=== PATIENT | female | born 1985 | race American Indian/Alaskan Native ===

== ENCOUNTER 2020-06-09 06:09 | Emergency (ER) | payer OTHER, SELFPAY ==
[2020-06-09 06:22] VITALS: BP 132/80; PULSE 71; RESP 16; TEMP 36.9; O2SAT 99; BMI 34.0
--- NOTE | 2020-06-09 06:27 | ECG_ITS ---
Test Reason : CHEST PAIN Blood Pressure : / mmHG Vent. Rate : 065 BPM Atrial Rate : 065 BPM P-R Int : 176 ms QRS Dur : 090 ms QT Int : 416 ms P-R-T Axes : 035 067 033 degrees QTc Int : 432 ms Normal sinus rhythm Normal ECG When compared with ECG of 23-DEC-2019 11:03, No significant change was found Referred By: Sylvia Hackett Electronically Signed By:FLORY PRIETO
--- NOTE | 2020-06-09 06:28 | XR_ITS ---
EXAMINATION: XR CHEST CLINICAL INFORMATION: Chest pain COMPARISON: 11/12/2013 TECHNIQUE: Frontal view of the chest was obtained. FINDINGS: Cardiac leads overlie the chest. The lungs are well expanded. There is no focal consolidation, edema, or effusion. No pneumothorax. The cardiomediastinal silhouette is within normal limits. No acute osseous abnormality. XR/XR chest 1V IMPRESSION: Clear lungs.
[2020-06-09 06:45] LABS: MANUAL DIFF FLAG NO
[2020-06-09 06:50] LABS: Basophils Percent Auto 0.1 % (0-2); Eosinophils Absolute Auto 0.1 X10*3/uL (0.0-0.4); Eosinophils Percent Auto 0.7 % (0-4); Hematocrit 36.5 % (37-47); Hemoglobin 11.5 g/dl (12.0-16.0); Imm Gran Abs Auto 0.02 X10*3/uL (0.00-0.03); Imm Gran Pct Auto 0.2 % (0.0-0.4); Lymphocytes Absolute Auto 2.8 X10*3/uL (1.2-4.9); Lymphocytes Percent Auto 32.9 % (20-40); Mean Corpuscular HGB Conc 31.5 g/dl (31.0-35.0); Mean Corpuscular Hemoglobin 28.1 pg (27.0-33.0); Mean Corpuscular Volume 89.2 fL (80-98); Mean Platelet Volume 9.3 fL (9.4-12.3); Monocytes Absolute Auto 0.6 X10*3/uL (0.1-1.2); Monocytes Percent Auto 7.5 % (2-11); Neutrophils Percent Auto 58.6 % (45-73); Platelet Count 317 X10*3/uL (160-400); Red Blood Count 4.09 X10*6/uL (4.20-5.50); Red Cell Distribution Width 14.6 % (11.0-16.0); White Blood Count 8.6 X10*3/uL (4.8-10.8)
--- NOTE | 2020-06-09 07:05 | ED_ITS ---
HPI - Chest Pain General Chief Complaint: Chest Pain Stated Complaint: CHEST PAIN Time Seen by Provider: 06/09/20 06:26 History of Present Illness HPI narrative: Patient is a 35-year-old female no history of diabetes, hypertension, mi, family history of MD. Not a smoker. Presents today with having chest pain that is mid chest. Patient claimed is constant to 20:00. Not associated with shortness of breath. Made worse with lying down. Improved with sitting up. Patient claims that she has a history of anxiety. She tried to take the hydralazine last night and then help. Presents to the emergency department this morning. No leg swelling. No history of control pills. No history of blood clots in the family. No history of cancer. No coughing or congestion or upper respiratory symptoms. No travel history. Patient denies any coughing congestion upper respiratory symptoms. No stress test done Related Data Previous Rx's Medication Instructions Recorded omeprazole magnesium [Prilosec OTC] 20 mg PO DAILY #14 tab 06/09/20 Allergies Allergy/AdvReac Type Severity Reaction Status Date / Time oxycodone [OXYCODONE] Allergy Mild VOMITING Unverified 02/25/20 15:21 acetaminophen [From PERCOCET] Allergy Unknown UNKNOWN Unverified 02/25/20 15:21 Vicodin Allergy Unknown stomach Uncoded 01/14/20 00:00 upset Review of Systems Review of Systems: Constitutional: No Weight loss, No Fever, No Chills, No Night Sweats, No Fatigue, No Malaise ENT/Mouth: No Hearing loss, No Ear Pain, No Nasal Congestion, No Sinus Pain, No Hoarseness, No sore throat, No Rhinorrhea, No Swallowing Difficulty Eyes: No Eye Pain, No Swelling, No Redness, No Foreign Body, No Discharge, No Vision Changes Cardiovascular: Positive Chest Pain, No SOB, No Dyspnea on Exertion, No Orthopnea, No Edema, No Palpitations Respiratory: No Cough, No Sputum, No Wheezing, No Smoke Exposure, No Dyspnea Gastrointestinal: No Nausea, No Vomiting, No Diarrhea, No Constipation, No abdominal Pain, No Hematochezia, No Melena Genitourinary: no irregular bleeding, No Dysuria, No Urinary Frequency, No Hematuria, No Urinary Incontinence, No Urgency, No Flank Pain, No Urinary Flow Changes, No Hesitancy Musculoskeletal: No joint pain, No Myalgias, No Joint Swelling Skin: No Skin Lesions, No rash Neuro: No Weakness, No Numbness, No Paresthesias, No Loss of Consciousness, No Dizziness, No Headache Psych: No Anxiety/Panic, No Depression, No SI/HI/AH/VH, No Social Issues, Heme/Lymph: No Bruising, No Bleeding,No Lymphadenopathy Endocrine: No Polyuria, No Polydipsia, No Temperature Intolerance Yes all other systems are reviewed and are negative [facility] Past Medical History Medical History Anemia Miscarriage Surgical History History of delivery Social History Social History Alcohol intake: never Smoking Status: Never smoker Use of substances other than those prescribed or required for medical reasons: No Advance Directives: No Physical Exam Vital Signs: Vital Signs: Last Vital Signs Temp 98.5 F 06/09/20 06:22 Pulse 58 06/09/20 07:52 Resp 16 06/09/20 07:52 BP 128/67 06/09/20 07:52 Pulse Ox 98 06/09/20 07:52 Body Mass Index 34.0 Appearance: Alert. Oriented X3. No acute distress. Eyes: Pupils equal, round and reactive to light. ENT: Pharynx normal. Neck: Normal inspection. Neck supple. No lymph nodes noted. No crepitus CVS: Normal heart rate and rhythm. Pulses normal. Normal S1 and S2 Respiratory: No respiratory distress. Breath sounds normal. No Wheezing. No rales Abdomen: Soft and nontender. No rigidity. No distention. good BS x4 Skin: Skin warm and dry. Normal skin color. Normal skin turgor. Extremities: No lower extremity edema. Neurovascular intact to all extremities. No Lacerations. No Rash Neuro: Oriented X 3. No motor deficit. No sensory deficit. Moving all extermities. No slurred speech MDM - Chest Pain MDM Narrative Medical decision making narrative: Patient's chest pain atypical for ACS. Patient had no risk factors normal EKG normal troponin. Heart score is less than 3. Pain is greater than 6 hours troponin is negative. Chest x-ray negative for pneumonia pneumothorax. Pain is more consistent with having reflux. Will discharge patient home. Currently in stable condition. Differential Diagnosis Differential diagnosis: Likely fracture of rib, pneumothorax, stable angina, unstable angina pectoris, atypical chest pain, st elevation myocardial infarction and costochondritis Medical Records Data Attestation: I reviewed the patient's medical records. Lab Data Attestation: I reviewed the patient's lab results. Result diagrams: 06/09/20 06:41 06/09/20 06:41 Labs: Lab Results 06/09/20 06/09/20 06/09/20 Range/Units 06:41 06:41 06:41 WBC 8.6 (4.8-10.8) X10*3/uL RBC 4.09 L (4.20-5.50) X10*6/uL Hgb 11.5 L (12.0-16.0) g/dl Hct 36.5 L (37-47) % MCV 89.2 (80-98) fL MCH 28.1 (27.0-33.0) pg MCHC 31.5 (31.0-35.0) g/dl RDW 14.6 (11.0-16.0) % Plt Count 317 (160-400) X10*3/uL MPV 9.3 L (9.4-12.3) fL Immature Gran % (Auto) 0.2 (0.0-0.4) % Neut % (Auto) 58.6 (45-73) % Lymph % (Auto) 32.9 (20-40) % [place] % (Auto) 7.5 (2-11) % Eos % (Auto) 0.7 (0-4) % Baso % (Auto) 0.1 (0-2) % Lymph # (Auto) 2.8 (1.2-4.9) X10*3/uL [place] # (Auto) 0.6 (0.1-1.2) X10*3/uL Eos # (Auto) 0.1 (0.0-0.4) X10*3/uL Baso # (Auto) 0.0 (0.0-0.2) X10*3/uL Abs Immat Gran (auto) 0.02 (0.00-0.03) X10*3/uL Absolute Neuts (auto) 5.0 (2.0-8.3) X10*3/uL Absolute Nucleated RBC 0.000 (0.0-0.012) X10*3/uL Nucleated RBC % (auto) 0.0 (0.0-0.2) /100WBC Sodium 136 (135-145) mmol/L Potassium 4.3 (3.3-5.1) mmol/l Chloride 106 (96-108) mmol/L Carbon Dioxide 24 (22-29) mmol/L Anion Gap 10 L (12-20) BUN 8 L (9-16) mg/dL Creatinine 0.76 (0.5-1.4) mg/dL Estim Creat Clear Calc 98.1 Estimated GFR > 60 Random Glucose 102 (60-115) mg/dL Calcium 9.1 (8.4-10.2) mg/dL Total Bilirubin 0.3 (0.0-1.0) mg/dL AST 18 (5-31) U/L ALT 27 (0-31) U/L Alkaline Phosphatase 82 (39-117) U/L Troponin I High Sens < 3.5 (<3.5-17.0) ng/L Total Protein 7.2 (6.5-8.0) g/dL Albumin 4.6 (3.5-5.0) g/dL Lipase 27 (8-78) U/L Urine Color Urine Appearance Urine pH (5.0-8.0) Ur Specific [address] (1.005-1.025) Urine Protein (NEG-TRACE) MG/DL Urine Glucose (UA) (NEG) MG/DL Urine Ketones (NEG) MG/DL Urine Blood (NEG) Urine Nitrite (NEG) Ur Leukocyte Esterase (NEG) Urine Test (NEGATIVE) 06/09/20 Range/Units 07:46 WBC (4.8-10.8) X10*3/uL RBC (4.20-5.50) X10*6/uL Hgb (12.0-16.0) g/dl Hct (37-47) % MCV (80-98) fL MCH (27.0-33.0) pg MCHC (31.0-35.0) g/dl RDW (11.0-16.0) % Plt Count (160-400) X10*3/uL MPV (9.4-12.3) fL Immature Gran % (Auto) (0.0-0.4) % Neut % (Auto) (45-73) % Lymph % (Auto) (20-40) % [place] % (Auto) (2-11) % Eos % (Auto) (0-4) % Baso % (Auto) (0-2) % Lymph # (Auto) (1.2-4.9) X10*3/uL [place] # (Auto) (0.1-1.2) X10*3/uL Eos # (Auto) (0.0-0.4) X10*3/uL Baso # (Auto) (0.0-0.2) X10*3/uL Abs Immat Gran (auto) (0.00-0.03) X10*3/uL Absolute Neuts (auto) (2.0-8.3) X10*3/uL Absolute Nucleated RBC (0.0-0.012) X10*3/uL Nucleated RBC % (auto) (0.0-0.2) /100WBC Sodium (135-145) mmol/L Potassium (3.3-5.1) mmol/l Chloride (96-108) mmol/L Carbon Dioxide (22-29) mmol/L Anion Gap (12-20) BUN (9-16) mg/dL Creatinine (0.5-1.4) mg/dL Estim Creat Clear Calc Estimated GFR Random Glucose (60-115) mg/dL Calcium (8.4-10.2) mg/dL Total Bilirubin (0.0-1.0) mg/dL AST (5-31) U/L ALT (0-31) U/L Alkaline Phosphatase (39-117) U/L Troponin I High Sens (<3.5-17.0) ng/L Total Protein (6.5-8.0) g/dL Albumin (3.5-5.0) g/dL Lipase (8-78) U/L Urine Color YELLOW Urine Appearance CLEAR Urine pH 7.0 (5.0-8.0) Ur Specific [address] 1.010 (1.005-1.025) Urine Protein NEG (NEG-TRACE) MG/DL Urine Glucose (UA) NEG (NEG) MG/DL Urine Ketones NEG (NEG) MG/DL Urine Blood NEG (NEG) Urine Nitrite NEG (NEG) Ur Leukocyte Esterase NEG (NEG) Urine Test NEGATIVE (NEGATIVE) ECG Data ECG #1: Interpretation: Sinus heart rate was 70 CT QRS QT within normal limits is no acute ST segment elevation noted Discharge Plan Discharge Clinical Impression: Chest pain Patient Disposition: Home, Self-Care Instructions: Chest Pain (ED) Prescriptions: New omeprazole magnesium [Prilosec OTC] 20 mg tablet,delayed release (DR/EC) 20 mg PO DAILY Qty: 14 RF: 0 Referrals: Mague Cruz MD [Primary Care Provider] - 2 days
--- NOTE | 2020-06-09 07:17 | PC.NURSE ---
report taken from mara yanez pt sitting up in [facility]. provider at bedside for primary eval. awaiting further orders.
[2020-06-09 07:18] LABS: Alanine Aminotransferase 27 U/L (0-31); Albumin Level 4.6 g/dL (3.5-5.0); Alkaline Phosphatase 82 U/L (39-117); Anion Gap 10 (12-20); Aspartate Amino Transferase 18 U/L (5-31); Bilirubin Total 0.3 mg/dL (0.0-1.0); Blood Urea Nitrogen 8 mg/dL (9-16); Calcium 9.1 mg/dL (8.4-10.2); Carbon Dioxide 24 mmol/L (22-29); Chloride 106 mmol/L (96-108); Creatinine Clr Calc Pharmacy 98.1; Estimated Glomerular Filt Rate > 60; Glucose Random 102 mg/dL (60-115); Lipase 27 U/L (8-78); Potassium 4.3 mmol/l (3.3-5.1); Sodium 136 mmol/L (135-145); Total Protein 7.2 g/dL (6.5-8.0)
[2020-06-09 07:21] LABS: Troponin-I High Sensitivity < 3.5 ng/L (<3.5-17.0)
[2020-06-09] MEDS: Magnesium Hydrox/Alum Hydrox 30 ML ORAL.SUSP PO (07:34)
[2020-06-09 07:52] VITALS: BP 128/67; PULSE 58; RESP 16; O2SAT 98
--- NOTE | 2020-06-09 07:53 | PC.NURSE ---
medicated per emar, ambulated to and from bathroom for ua spec w steady gait.
[2020-06-09 07:59] LABS: Glucose Urine UA NEG (NEG); Leukocyte Esterase Urine NEG (NEG); Nitrite Urine NEG (NEG); Urine Blood NEG (NEG); Urine Ketones NEG (NEG); Urine Protein NEG (NEG-TRACE)
[2020-06-09 08:00] LABS: Appearance Urine CLEAR; Color Urine YELLOW; UPreg QC Valid YES; Urine Pregnancy NEGATIVE (NEGATIVE)
== END 2020-06-09 08:32 | disposition home or self-care (01) ==
PROVIDERS: Student in an Organized Health Care Education/Training Program; Emergency Provider Emergency Medicine Emergency Medical Services; PCP Internal Medicine
DX: R07.9 Chest pain, unspecified (principal); Z79.899 Other long term (current) drug therapy
CPT/HCPCS: 36415; 71045; 80053; 81003; 81025; 83690; 84484; 85025; 93005; 99283; 99284

== ENCOUNTER 2020-06-13 11:51 | Outpatient (REF) | payer OTHER, SELFPAY ==
[2020-06-13 13:12] LABS: Basophils Percent Auto 0.2 % (0-2); Eosinophils Absolute Auto 0.1 X10*3/uL (0.0-0.4); Eosinophils Percent Auto 1.1 % (0-4); Hematocrit 34.5 % (37-47); Hemoglobin 10.8 g/dl (12.0-16.0); Imm Gran Abs Auto 0.02 X10*3/uL (0.00-0.03); Imm Gran Pct Auto 0.2 % (0.0-0.4); Lymphocytes Absolute Auto 2.7 X10*3/uL (1.2-4.9); MANUAL DIFF FLAG NO; Mean Corpuscular HGB Conc 31.3 g/dl (31.0-35.0); Mean Corpuscular Hemoglobin 27.9 pg (27.0-33.0); Mean Corpuscular Volume 89.1 fL (80-98); Mean Platelet Volume 9.6 fL (9.4-12.3); Monocytes Absolute Auto 0.6 X10*3/uL (0.1-1.2); Monocytes Percent Auto 7.2 % (2-11); Neutrophils Absolute Auto 5.1 X10*3/uL (2.0-8.3); Neutrophils Percent Auto 59.3 % (45-73); Platelet Count 320 X10*3/uL (160-400); Red Blood Count 3.87 X10*6/uL (4.20-5.50); Red Cell Distribution Width 14.5 % (11.0-16.0); White Blood Count 8.5 X10*3/uL (4.8-10.8)
[2020-06-13 13:59] LABS: TSH reflex Free T4 0.15 mIU/mL (0.32-4.0)
[2020-06-13 14:04] LABS: Alanine Aminotransferase 23 U/L (0-31); Albumin Level 4.3 g/dL (3.5-5.0); Alkaline Phosphatase 71 U/L (39-117); Anion Gap 15 (12-20); Aspartate Amino Transferase 17 U/L (5-31); Bilirubin Total 0.2 mg/dL (0.0-1.0); Blood Urea Nitrogen 16 mg/dL (9-16); Calcium 8.6 mg/dL (8.4-10.2); Carbon Dioxide 23 mmol/L (22-29); Chloride 107 mmol/L (96-108); Estimated Glomerular Filt Rate > 60; Glucose Fasting 90 mg/dL (60-99); Potassium 4.5 mmol/l (3.3-5.1); Sodium 140 mmol/L (135-145); Total Protein 7.1 g/dL (6.5-8.0)
[2020-06-13 15:01] LABS: Free T4 (Free Thyroxine) 0.82 ng/dL (0.71-1.85)
== END 2020-06-13 11:52 | disposition home or self-care (01) ==
LOC: HO.LAB 11:51
PROVIDERS: Absent Provider Obstetrics & Gynecology; PCP Internal Medicine; Visit Provider Internal Medicine
DX: E07.9 Disorder of thyroid, unspecified (principal); R55 Syncope and collapse
CPT/HCPCS: 36415; 80053; 84439; 84443; 85025

== ENCOUNTER → 2020-09-08 08:39 | Outpatient (BNVA) | payer OTHER, SELFPAY | PROVIDERS: PCP Internal Medicine; Visit Provider Internal Medicine Endocrinology, Diabetes & Metabolism | DX: E05.90 Thyrotoxicosis, unspecified without thyrotoxic crisis or storm (principal) | CPT/HCPCS: 99202 ==

== ENCOUNTER 2020-09-08 09:29 | Outpatient (REF) | payer OTHER, SELFPAY ==
[2020-09-08 11:09] LABS: Free T4 (Free Thyroxine) 0.66 ng/dL (0.71-1.85); HCG Quantitative < 2 mIU/mL; Thyroid Stimulating Hormone 0.16 uIU/mL (0.32-4.0)
[2020-09-09 02:42] LABS: Triiodothyronine T3 Total 65 ng/dL (76-181)
[2020-09-09 07:02] LABS: Thyroglobulin Antibodies <1 IU/mL (< or = 1); Thyroid Peroxidase Antibodies 1 IU/mL (<9)
[2020-09-12 08:46] LABS: Thyrotropin Receptor Antibody 2.32 IU/L (<=2.00)
[2020-09-12 14:46] LABS: IGF-1 (Somatomedin C) 87 ng/mL (53-331)
[2020-09-14 15:52] LABS: Thyroid Stimulating Immunoglob <89 % baseline (<140)
== END 2020-09-08 09:30 | disposition home or self-care (01) ==
LOC: HO.10HDL 09:29
PROVIDERS: Visit Provider Internal Medicine Endocrinology, Diabetes & Metabolism
DX: E05.90 Thyrotoxicosis, unspecified without thyrotoxic crisis or storm (principal)
CPT/HCPCS: 36415; 83520; 84305; 84439; 84443; 84445; 84480; 84702; 86376; 86800

== ENCOUNTER 2020-09-20 09:38 | Outpatient (REF) | payer OTHER, SELFPAY ==
--- NOTE | ~2020-09-20 | US_ITS ---
EXAMINATION: US THYROID CLINICAL INFORMATION: Thyrotoxicosis, unspecified without thyrotoxic crisis or storm. COMPARISON: Thyroid ultrasound 12/27/2014. TECHNIQUE: Linear transducer ledezma-scale and color Doppler examination with attention to the region of the thyroid. FINDINGS: SIZE: Measurements of the thyroid lobes and nodules are given in sagittal, anteroposterior and transverse dimensions respectively. Right Thyroid Lobe: 6.0 x 1.6 x 1.9 cm, volume 9.8 mL. Previously 5.5 x 1.6 x 1.4 cm, volume 6.8 mL. Parenchyma: The gland echotexture is homogeneous. Thyroid vascularity is normal. Left Thyroid Lobe: 6.2 x 1.4 x 1.7 cm, volume 7.8 mL. Previously 5.6 x 1.7 x 1.8 cm, volume 8.9 mL. Parenchyma: The gland echotexture is homogeneous. Thyroid vascularity is normal. Isthmus: 0.5 cm in maximum AP dimension. Previously 0.4 cm. Estimated total number of nodules greater than or equal to 1 cm: 0. Trauma Registrar nodules are described as follows: 1. Location: Left mid pole. Size: 0.5 x 0.3 x 0.5 cm, volume 0.04 mL. Previously: 0.4 x 0.3 x 0.4 cm, volume 0.03 mL. Nodule characteristics: Composition: Spongiform (0). ACR TI-RADS total points: 0 ACR TI-RADS category: 1 Significant change in size (>/= 20% in 2 dimensions and minimal increase of 2 mm or 50% or greater increase in volume): Yes Change in features: No Change in ACR TI-RADS risk category: Shortness 2. Location: Isthmus. Size: 0.4 x 0.2 x 0.3 cm, volume 0.01 mL. Previously: Not documented. Nodule characteristics: Composition: Solid (2). Echogenicity: Hyperechoic (1). Shape: Not taller than wide (0). Margins: Ill-defined (0). Echogenic Foci: None (0). ACR TI-RADS total points: 3 ACR TI-RADS category: 3 NODES: No lymphadenopathy is seen in the tissue surrounding the thyroid gland. US/US thyroid IMPRESSION: Slightly enlarged right lobe. Small spongiform left nodule slightly increased in size from 2015. Newly appreciated small isthmus nodule. ACR TI-RADS RECOMMENDATION REFERENCE: Ultrasound-guided fine-needle aspiration, followup ultrasound, no further follow up. * TR1 (0 point) and TR 2 (2 points): No FNA or follow up * TR3 (3 points): FNA if more than or equal to 2.5 cm in maximum dimension, followup ultrasound in 1, 3 and 5 years if 1.5 to 2.4 cm in maximum dimension. * TR4 (4-6 points): FNA if more than or equal to 1.5 cm in maximum dimension, followup ultrasound in 1, 2, 3 and 5 years if 1 to 1.4 cm in maximum dimension. * TR5 (more than or equal to 7 points): FNA if more than or equal to 1 cm in maximum dimension, followup ultrasound every year for 5 years if 0.5 to 0.9 cm in maximum dimension. * TR3, TR4 or TR5 nodules that are below the size threshold for follow up receive no follow up.
== END 2020-09-20 09:39 | disposition home or self-care (01) ==
LOC: HO.US 09:38
PROVIDERS: Visit Provider Internal Medicine Endocrinology, Diabetes & Metabolism
DX: E05.90 Thyrotoxicosis, unspecified without thyrotoxic crisis or storm (principal)
CPT/HCPCS: 76536

== ENCOUNTER 2020-11-02 10:31 | Emergency (ER) | payer OTHER, SELFPAY ==
--- NOTE | 2020-11-02 | ECG_ITS ---
Test Reason : MED CLEARANCE Blood Pressure : / mmHG Vent. Rate : 082 BPM Atrial Rate : 082 BPM P-R Int : 152 ms QRS Dur : 088 ms QT Int : 414 ms P-R-T Axes : 061 072 054 degrees QTc Int : 483 ms Normal sinus rhythm Prolonged QT Abnormal ECG When compared with ECG of 09-JUN-2020 06:15, QT has lengthened Referred By: Generic ED Physician Electronically Signed By:FLORY PRIETO
[2020-11-02 10:39] VITALS: BP 148/101; PULSE 99; RESP 18; TEMP 36.8; O2SAT 98; BMI 37.4
--- NOTE | 2020-11-02 11:02 | ED_ITS ---
HPI - Psych General Chief Complaint: Psychiatric Symptoms Stated Complaint: CRISIS Time Seen by Provider: 11/02/20 11:02 History of Present Illness HPI Narrative: Patient with medical history of PTSD/anxiety comes today complaining of feeling like there is blood in her mouth, and that some people may be trying to hurt her she denies any suicidal thoughts she has no thoughts of self-harm she denies hearing voices and she denies any desire to harm any other people, she denies substance abuse She feels shaky, she gets some chest pain when she feels anxiety but it is not related to exertion is no shortness of breath no sweating no nausea Patient does say she is Related Data Home Medications Medication Instructions Recorded Confirmed escitalopram oxalate 20 mg tablet 20 mg PO DAILY 07/04/20 09/08/20 hydroxyzine HCl 50 mg tablet 50 mg PO TID 07/04/20 09/08/20 quetiapine 25 mg tablet 25 mg PO BEDTIME 07/04/20 09/08/20 trazodone 50 mg tablet 50 mg PO BEDTIME 07/04/20 09/08/20 Previous Rx's Medication Instructions Recorded omeprazole magnesium [Prilosec OTC] 20 mg PO DAILY #14 tab 06/09/20 cyanocobalamin (vitamin B-12) 1,000 mcg PO DAILY #90 tab 08/22/20 [Vitamin B-12] ferrous sulfate 325 mg (65 mg 325 mg PO DAILY 90 Days #90 tab 10/12/20 iron) tablet,delayed release Allergies Allergy/AdvReac Type Severity Reaction Status Date / Time oxycodone [OXYCODONE] Allergy Mild VOMITING Verified 09/08/20 08:48 hydrocodone [From Vicodin] Allergy Unknown upset Verified 09/08/20 08:48 stomach amoxicillin Allergy Rash Verified 09/08/20 08:48 Review of Systems Review of Systems: Positive for anxiety and feeling like some people might want to harm her She is negative no fever no chills no dizziness no weakness no shortness of breath no abdominal pain no nausea or vomiting and no sore throat no headache no leg swelling no rash Yes all other systems are reviewed and are negative PMFSH Past Medical History PMF Narrative: Patient does have a psychiatric history Source: nursing notes reviewed Medical History (Updated 09/28/20 @ 09:04 by Esme Meade MD) Abnormal TSH Anemia Depression with anxiety GERD (gastroesophageal reflux disease) Miscarriage Normocytic anemia Subclinical hyperthyroidism Syncope and collapse Surgical History (Updated 08/22/20 @ 13:29 by Esme Meade MD) H/O LEEP History of delivery Family History Family History (Updated 08/22/20 @ 09:46 by Jazmine Villegas) Father No problems noted. Mother No problems noted. Maternal Aunt Breast cancer Diabetes Heart attack Maternal Grandmother Hypertension Diabetes Social History Social History (Updated 09/28/20 @ 08:56 by Jazmine Villegas) Alcohol intake: current Alcohol intake frequency: holidays/special occasions only Cigarettes Per Day: 9 Substance Use Type: Marijuana Advance Directives: No Advance Directives Information Provided: No Patient : No Physical Exam Vital Signs: Vital Signs: Last Vital Signs Temp 98.3 F 11/02/20 10:39 Pulse 99 11/02/20 10:39 Resp 18 11/02/20 10:39 BP 148/101 H 11/02/20 10:39 Pulse Ox 98 11/02/20 10:39 Body Mass Index 37.4 General appearance is no acute distress, come and cooperative The head is normocephalic atraumatic Neck is supple Pharynx is clear Neck is supple Chest is clear to auscultation bilateral with full symmetric equal breath sounds The heart no murmur auscultated Abdomen soft nontender Extremities full range of motion x4, there is no pedal edema, there is no calf tenderness or swelling Skin no rash Neuro no focal deficit Course Course Course Narrative: Patient believes she is , but today's test is negative Chemistry and CBC did not reveal any acute abnormality Urine toxicology showed positive for phencyclidine, cocaine and marijuana Urinalysis was negative as was urine test EKG was a normal sinus rhythm with a rate of 82, WA interval was 152, QRS durati on was 88 QT corrected was 483, mild prolongation of QT No acute ST elevations or ischemic changes Case was signed out to physician assistant manager/embalmer Bruce with N evaluation pending MDM - Psych Lab Data Result diagrams: 11/02/20 12:02 11/02/20 12:02 Labs: Lab Results 11/02/20 11/02/20 11/02/20 Range/Units 11:12 11:12 11:12 WBC (4.8-10.8) X10*3/uL RBC (4.20-5.50) X10*6/uL Hgb (12.0-16.0) g/dl Hct (37-47) % MCV (80-98) fL MCH (27.0-33.0) pg MCHC (31.0-35.0) g/dl RDW (11.0-16.0) % Plt Count (160-400) X10*3/uL MPV (9.4-12.3) fL Immature Gran % (Auto) (0.0-0.4) % Neut % (Auto) (45-73) % Lymph % (Auto) (20-40) % [place] % (Auto) (2-11) % Eos % (Auto) (0-4) % Baso % (Auto) (0-2) % Lymph # (Auto) (1.2-4.9) X10*3/uL [place] # (Auto) (0.1-1.2) X10*3/uL Eos # (Auto) (0.0-0.4) X10*3/uL Baso # (Auto) (0.0-0.2) X10*3/uL Abs Immat Gran (auto) (0.00-0.03) X10*3/uL Absolute Neuts (auto) (2.0-8.3) X10*3/uL Absolute Nucleated RBC (0.0-0.012) X10*3/uL Nucleated RBC % (auto) (0.0-0.2) /100WBC Sodium (135-145) mmol/L Potassium (3.3-5.1) mmol/L Chloride (96-108) mmol/L Carbon Dioxide (22-29) mmol/L Anion Gap (12-20) BUN (9-16) mg/dL Creatinine (0.5-1.4) mg/dL Estim Creat Clear Calc Estimated GFR Random Glucose (60-115) mg/dL Calcium (8.4-10.2) mg/dL Troponin I High Sens (<3.5-17.0) ng/L Beta HCG, Quant mIU/mL Urine Color YELLOW Urine Appearance CLEAR Urine pH 6.0 (5.0-8.0) Ur Specific [place] 1.020 (1.005-1.025) Urine Protein TRACE (NEG-TRACE) MG/DL Urine Glucose (UA) NEG (NEG) MG/DL Urine Ketones NEG (NEG) MG/DL Urine Blood NEG (NEG) Urine Nitrite NEG (NEG) Ur Leukocyte Esterase NEG (NEG) Urine Test NEGATIVE (NEGATIVE) Urine Opiates Screen Not Detected (Not Detect) Ur Barbiturates Screen Not Detected (Not Detect) Ur Phencyclidine Scrn POSITIVE H (Not Detect) Ur Amphetamines Screen Not Detected (Not Detect) U Benzodiazepines Scrn Not Detected (Not Detect) Urine Cocaine Screen POSITIVE H (Not Detect) U Marijuana (THC) Screen POSITIVE H (Not Detect) Ethyl Alcohol mg/dL 11/02/20 11/02/20 11/02/20 Range/Units 12:02 12:02 12:02 WBC 10.5 (4.8-10.8) X10*3/uL RBC 4.71 (4.20-5.50) X10*6/uL Hgb 14.5 (12.0-16.0) g/dl Hct 44.0 (37-47) % MCV 93.4 (80-98) fL MCH 30.8 (27.0-33.0) pg MCHC 33.0 (31.0-35.0) g/dl RDW 13.1 (11.0-16.0) % Plt Count 263 D (160-400) X10*3/uL MPV 9.2 L (9.4-12.3) fL Immature Gran % (Auto) 0.5 H (0.0-0.4) % Neut % (Auto) 71.2 (45-73) % Lymph % (Auto) 22.4 (20-40) % [place] % (Auto) 4.9 (2-11) % Eos % (Auto) 0.9 (0-4) % Baso % (Auto) 0.1 (0-2) % Lymph # (Auto) 2.4 (1.2-4.9) X10*3/uL [place] # (Auto) 0.5 (0.1-1.2) X10*3/uL Eos # (Auto) 0.1 (0.0-0.4) X10*3/uL Baso # (Auto) 0.0 (0.0-0.2) X10*3/uL Abs Immat Gran (auto) 0.05 H (0.00-0.03) X10*3/uL Absolute Neuts (auto) 7.5 (2.0-8.3) X10*3/uL Absolute Nucleated RBC 0.000 (0.0-0.012) X10*3/uL Nucleated RBC % (auto) 0.0 (0.0-0.2) /100WBC Sodium 139 (135-145) mmol/L Potassium 4.5 (3.3-5.1) mmol/L Chloride 104 (96-108) mmol/L Carbon Dioxide 26 (22-29) mmol/L Anion Gap 14 (12-20) BUN 10 (9-16) mg/dL Creatinine 0.90 (0.5-1.4) mg/dL Estim Creat Clear Calc 97.8 Estimated GFR > 60 Random Glucose 103 (60-115) mg/dL Calcium 9.9 D (8.4-10.2) mg/dL Troponin I High Sens < 3.5 (<3.5-17.0) ng/L Beta HCG, Quant mIU/mL Urine Color Urine Appearance Urine pH (5.0-8.0) Ur Specific [place] (1.005-1.025) Urine Protein (NEG-TRACE) MG/DL Urine Glucose (UA) (NEG) MG/DL Urine Ketones (NEG) MG/DL Urine Blood (NEG) Urine Nitrite (NEG) Ur Leukocyte Esterase (NEG) Urine Test (NEGATIVE) Urine Opiates Screen (Not Detect) Ur Barbiturates Screen (Not Detect) Ur Phencyclidine Scrn (Not Detect) Ur Amphetamines Screen (Not Detect) U Benzodiazepines Scrn (Not Detect) Urine Cocaine Screen (Not Detect) U Marijuana (THC) Screen (Not Detect) Ethyl Alcohol mg/dL 11/02/20 11/02/20 Range/Units 12:02 12:02 WBC (4.8-10.8) X10*3/uL RBC (4.20-5.50) X10*6/uL Hgb (12.0-16.0) g/dl Hct (37-47) % MCV (80-98) fL MCH (27.0-33.0) pg MCHC (31.0-35.0) g/dl RDW (11.0-16.0) % Plt Count (160-400) X10*3/uL MPV (9.4-12.3) fL Immature Gran % (Auto) (0.0-0.4) % Neut % (Auto) (45-73) % Lymph % (Auto) (20-40) % [place] % (Auto) (2-11) % Eos % (Auto) (0-4) % Baso % (Auto) (0-2) % Lymph # (Auto) (1.2-4.9) X10*3/uL [place] # (Auto) (0.1-1.2) X10*3/uL Eos # (Auto) (0.0-0.4) X10*3/uL Baso # (Auto) (0.0-0.2) X10*3/uL Abs Immat Gran (auto) (0.00-0.03) X10*3/uL Absolute Neuts (auto) (2.0-8.3) X10*3/uL Absolute Nucleated RBC (0.0-0.012) X10*3/uL Nucleated RBC % (auto) (0.0-0.2) /100WBC Sodium (135-145) mmol/L Potassium (3.3-5.1) mmol/L Chloride (96-108) mmol/L Carbon Dioxide (22-29) mmol/L Anion Gap (12-20) BUN (9-16) mg/dL Creatinine (0.5-1.4) mg/dL Estim Creat Clear Calc Estimated GFR Random Glucose (60-115) mg/dL Calcium (8.4-10.2) mg/dL Troponin I High Sens (<3.5-17.0) ng/L Beta HCG, Quant < 2 mIU/mL Urine Color Urine Appearance Urine pH (5.0-8.0) Ur Specific [place] (1.005-1.025) Urine Protein (NEG-TRACE) MG/DL Urine Glucose (UA) (NEG) MG/DL Urine Ketones (NEG) MG/DL Urine Blood (NEG) Urine Nitrite (NEG) Ur Leukocyte Esterase (NEG) Urine Test (NEGATIVE) Urine Opiates Screen (Not Detect) Ur Barbiturates Screen (Not Detect) Ur Phencyclidine Scrn (Not Detect) Ur Amphetamines Screen (Not Detect) U Benzodiazepines Scrn (Not Detect) Urine Cocaine Screen (Not Detect) U Marijuana (THC) Screen (Not Detect) Ethyl Alcohol < 10 mg/dL Discharge Plan Discharge Prescriptions: No Action ferrous sulfate 325 mg (65 mg iron) tablet,delayed release (DR/EC) 325 mg PO DAILY 90 Days Qty: 90 RF: 3 cyanocobalamin (vitamin B-12) [Vitamin B-12] 1,000 mcg Tablet 1,000 mcg PO DAILY Qty: 90 RF: 3 omeprazole magnesium [Prilosec OTC] 20 mg tablet,delayed release (DR/EC) 20 mg PO DAILY Qty: 14 RF: 0 quetiapine 25 mg tablet 25 mg PO BEDTIME RF: 0 trazodone 50 mg tablet 50 mg PO BEDTIME RF: 0 hydroxyzine HCl 50 mg tablet 50 mg PO TID RF: 0 escitalopram oxalate 20 mg tablet 20 mg PO DAILY RF: 0
[2020-11-02 11:44] LABS: Glucose Urine UA NEG (NEG); Leukocyte Esterase Urine NEG (NEG); Nitrite Urine NEG (NEG); Urine Blood NEG (NEG); Urine Ketones NEG (NEG); Urine Protein TRACE MG/DL (NEG-TRACE)
[2020-11-02 11:45] LABS: Appearance Urine CLEAR; Color Urine YELLOW; UPreg QC Valid YES; Urine Pregnancy NEGATIVE (NEGATIVE)
[2020-11-02 11:48] LABS: Amphetamine Screen Urine Not Detected (Not Detect); Barbiturates, Urine Not Detected (Not Detect); Benzodiazepines Screen Urine Not Detected (Not Detect); Cannabinoid Screen Urine POSITIVE (Not Detect); Cocaine Screen Urine POSITIVE (Not Detect); Opiate Screen Urine Not Detected (Not Detect); Phencyclidine Screen Urine POSITIVE (Not Detect)
[2020-11-02 12:06] LABS: MANUAL DIFF FLAG NO
[2020-11-02 12:11] LABS: Basophils Percent Auto 0.1 % (0-2); Eosinophils Absolute Auto 0.1 X10*3/uL (0.0-0.4); Eosinophils Percent Auto 0.9 % (0-4); Hemoglobin 14.5 g/dl (12.0-16.0); Imm Gran Abs Auto 0.05 X10*3/uL (0.00-0.03); Imm Gran Pct Auto 0.5 % (0.0-0.4); Lymphocytes Absolute Auto 2.4 X10*3/uL (1.2-4.9); Lymphocytes Percent Auto 22.4 % (20-40); Mean Corpuscular Hemoglobin 30.8 pg (27.0-33.0); Mean Corpuscular Volume 93.4 fL (80-98); Mean Platelet Volume 9.2 fL (9.4-12.3); Monocytes Absolute Auto 0.5 X10*3/uL (0.1-1.2); Monocytes Percent Auto 4.9 % (2-11); Neutrophils Absolute Auto 7.5 X10*3/uL (2.0-8.3); Neutrophils Percent Auto 71.2 % (45-73); Platelet Count 263 X10*3/uL (160-400); Red Blood Count 4.71 X10*6/uL (4.20-5.50); Red Cell Distribution Width 13.1 % (11.0-16.0); White Blood Count 10.5 X10*3/uL (4.8-10.8)
[2020-11-02 12:39] LABS: Ethanol < 10 mg/dL
[2020-11-02 12:40] LABS: Anion Gap 14 (12-20); Blood Urea Nitrogen 10 mg/dL (9-16); Calcium 9.9 mg/dL (8.4-10.2); Carbon Dioxide 26 mmol/L (22-29); Chloride 104 mmol/L (96-108); Creatinine Clr Calc Pharmacy 97.8; Estimated Glomerular Filt Rate > 60; Glucose Random 103 mg/dL (60-115); Potassium 4.5 mmol/L (3.3-5.1); Sodium 139 mmol/L (135-145)
[2020-11-02 12:43] LABS: HCG Quantitative < 2 mIU/mL; Troponin-I High Sensitivity < 3.5 ng/L (<3.5-17.0)
--- NOTE | 2020-11-02 15:25 | PC.NURSE ---
Report recieved. PT currently resting, calm and cooperative. PT waiting to be seen by N.
[2020-11-02] MEDS: LORazepam 1 MG TABLET PO (17:09)
--- NOTE | 2020-11-02 17:39 | PC.NURSE ---
PT came out of her room asking what happened, pt upset asking if something happened to her family, or if someone . PT attempting to call her family at this time.
[2020-11-02 18:58] LABS: COVID-19 Test Negative (Negative)
--- NOTE | 2020-11-02 19:45 | PC.NURSE ---
Patient in bed resting, VSS, [facility] called spoke with Shanelle confirmed receipt of referral, no eta at this time, no distress reported, will continue to monitor.
[2020-11-02 20:07] VITALS: BP 135/97; PULSE 87; RESP 14; TEMP 36.1; O2SAT 99
--- NOTE | 2020-11-03 03:10 | PC.NURSE ---
[facility] at bedside, patient engaged.
[2020-11-03 04:11] VITALS: BP 133/93; PULSE 84; RESP 16; TEMP 36.6; O2SAT 99
[2020-11-03] MEDS: QUEtiapine Fumarate 25 MG TABLET PO (04:15)
[2020-11-03] MEDS: LORazepam 1 MG TABLET PO (04:20)
--- NOTE | 2020-11-03 04:26 | PC.NURSE ---
Patient report anxiety, PRN Ativan 1 mg with Serequel 25 mg administered as ordered, pending effect, will continue to monitor.
== END 2020-11-03 08:02 | disposition home or self-care (01) ==
PROVIDERS: Physician Assistant; Physician Assistant Medical; Emergency Provider Emergency Medicine; PCP Internal Medicine
DX: F31.9 Bipolar disorder, unspecified (principal); R07.9 Chest pain, unspecified; F41.1 Generalized anxiety disorder; F43.0 Acute stress reaction; F12.90 Cannabis use, unspecified, uncomplicated; Z79.899 Other long term (current) drug therapy
CPT/HCPCS: 36415; 80048; 80307; 80320; 81003; 81025; 84484; 84702; 85025; 87635; 93005; 99285

== ENCOUNTER 2020-11-04 02:32 | Emergency (ER) | payer OTHER, SELFPAY ==
[2020-11-04 02:34] VITALS: BP 145/105; PULSE 120; RESP 17; TEMP 36.6; O2SAT 99; BMI 34.0
[2020-11-04 02:51] VITALS: BP 145/105; PULSE 120; RESP 17; TEMP 36.6; O2SAT 99
[2020-11-04 03:19] VITALS: BP 140/99; PULSE 101; RESP 17; O2SAT 98
[2020-11-04 03:29] LABS: Glucose Urine UA NEG (NEG); Leukocyte Esterase Urine NEG (NEG); Nitrite Urine NEG (NEG); PH 5.5 (5.0-8.0); Specific Gravity - Urine >= 1.030 (1.005-1.025); Urine Blood NEG (NEG); Urine Ketones NEG (NEG); Urine Protein NEG (NEG-TRACE)
[2020-11-04 03:33] LABS: Appearance Urine CLEAR; Color Urine YELLOW
[2020-11-04 03:35] LABS: UPreg QC Valid YES; Urine Pregnancy NEGATIVE (NEGATIVE)
--- NOTE | 2020-11-04 03:36 | PC.NURSE ---
Called patient's mother Lisandra @ [phone] to get further information about section 35 which she notified earlier via phone. Lisandra notified that her daughter will be picked up by PD in the morning when the court opens. Lisandra requested us to keep until then and don't let her go..
[2020-11-04 03:38] LABS: Bacteria Urine 1+ /LPF; Mucus Urine 2+ /LPF; Squamous Epithelial Cell Urine 1+ /LPF
[2020-11-04 03:45] LABS: COVID-19 Test Negative (Negative)
--- NOTE | 2020-11-04 03:52 | ED_ITS ---
HPI - Psych General Chief Complaint: Psychiatric Symptoms Stated Complaint: CRISIS Time Seen by Provider: 11/04/20 03:52 Source: patient and EMS Mode of arrival: EMS Limitations: no limitations History of Present Illness HPI Narrative: Patient is brought to emergency room by her mother. Earlier this morning, patient was discharged to a detox program at [facility]. Patient left, use drugs. Mother at home concerned about her safety, patient exhibited erratic behavior. Patient denies suicidal or homicidal ideation. Patient's mother filed a 35 a. Patient is currently on a Section 12. Police Department will pick her up in the morning for court. Related Data Home Medications Medication Instructions Recorded Confirmed escitalopram oxalate 20 mg tablet 20 mg PO DAILY 07/04/20 11/04/20 hydroxyzine HCl 50 mg tablet 50 mg PO TID PRN 07/04/20 11/04/20 quetiapine 25 mg tablet 25 mg PO BEDTIME 07/04/20 11/04/20 trazodone 50 mg tablet 50 mg PO BEDTIME PRN 07/04/20 11/04/20 Allergies Allergy/AdvReac Type Severity Reaction Status Date / Time oxycodone [OXYCODONE] Allergy Mild VOMITING Verified 09/08/20 08:48 hydrocodone [From Vicodin] Allergy Unknown upset Verified 09/08/20 08:48 stomach amoxicillin Allergy Rash Verified 09/08/20 08:48 Review of Systems Review of Systems: Constitutional : No Weight loss, No Fever, No Chills, No Night Sweats, No Fatigue, No Malaise ENT/Mouth : No Hearing loss, No Ear Pain, No Nasal Congestion, No Sinus Pain, No Hoarseness, No sore throat, No Rhinorrhea, No Swallowing Difficulty Eyes: No Eye Pain, No Swelling, No Redness, No Foreign Body, No Discharge, No Vision Changes Cardiovascular : No Chest Pain, No SOB, No Dyspnea on Exertion, No Orthopnea, No Edema, No Palpitations Respiratory : No Cough, No Sputum, No Wheezing, No Smoke Exposure, No Dyspnea Gastrointestinal : No Nausea, No Vomiting, No Diarrhea, No Constipation, No abdominal Pain, No Hematochezia, No Melena Genitourinary : no irregular bleeding, No Dysuria, No Urinary Frequency, No Hematuria, No Urinary Incontinence, No Urgency, No Flank Pain, No Urinary Flow Changes, No Hesitancy Musculoskeletal : No joint pain, No Myalgias, No Joint Swelling Skin : No Skin Lesions, No rash Neuro : No Weakness, No Numbness, No Paresthesias, No Loss of Consciousness, No Dizziness, No Headache Psych : Denies suicidal homicidal ideation, patient complaining of anxiety Heme/Lymph: No Bruising, No Bleeding,No Lymphadenopathy Endocrine : No Polyuria, No Polydipsia, No Temperature Intolerance PMFSH Past Medical History Medical History Abnormal TSH Anemia Depression with anxiety GERD (gastroesophageal reflux disease) Miscarriage Normocytic anemia Subclinical hyperthyroidism Syncope and collapse Surgical History H/O LEEP History of delivery Family History Family History (Updated 08/22/20 @ 09:46 by Jazmine Villegas) Father No problems noted. Mother No problems noted. Maternal Aunt Breast cancer Diabetes Heart attack Maternal Grandmother Hypertension Diabetes Social History Social History (Updated 09/28/20 @ 08:56 by Jazmine Villegas) Alcohol intake: never Patient Tobacco Use Status: Never used Tobacco Cigarettes Per Day: 9 Substance Use Type: Crack/Cocaine, Hallucinogens and Marijuana Advance Directives: No Advance Directives Information Provided: No Patient : Yes Physical Exam Vital Signs: Vital Signs: Last Vital Signs Temp 97.8 F 11/04/20 02:51 Pulse 101 H 11/04/20 03:19 Resp 17 11/04/20 03:19 BP 140/99 H 11/04/20 03:19 Pulse Ox 98 11/04/20 03:19 Body Mass Index 34.0 Appearance: Alert. Oriented X3. No acute distress. Eyes: Pupils equal, round and reactive to light. ENT: Pharynx normal. Neck: Normal inspection. Neck supple. No lymph nodes noted. No crepitus CVS: Normal heart rate and rhythm. Pulses normal. Normal S1 and S2 Respiratory: No respiratory distress. Breath sounds normal. No Wheezing. No rales Abdomen: Soft and nontender. No rigidity. No distention. good BS x4 Skin: Skin warm and dry. Normal skin color. Normal skin turgor. Extremities: No lower extremity edema. No lower extremity edema. No Lacerations. No Rash Neuro: Oriented X 3. No motor deficit. No sensory deficit. Moving all extermities. No slurred speech. Course Course Course Narrative: Patient is under Section 12 now, patient [facility]. Police will pick her up and take her to court. Patient has section 35 a MDM - Psych Lab Data Labs: Lab Results 11/04/20 11/04/20 11/04/20 Range/Units 03:06 03:12 03:12 Urine Color YELLOW Urine Appearance CLEAR Urine pH 5.5 (5.0-8.0) Ur Specific [place] >= 1.030 H (1.005-1.025) Urine Protein NEG (NEG-TRACE) MG/DL Urine Glucose (UA) NEG (NEG) MG/DL Urine Ketones NEG (NEG) MG/DL Urine Blood NEG (NEG) Urine Nitrite NEG (NEG) Ur Leukocyte Esterase NEG (NEG) Urine RBC 1-4 (0) /HPF Urine WBC 1-4 (0-4) /HPF Ur Squamous Epith Cells 1+ /LPF Urine Bacteria 1+ /LPF Urine Mucus 2+ /LPF Urine Test NEGATIVE (NEGATIVE) COVID-19 (JOSE) Negative (Negative) COVID-19 Clin Com See Note Discharge Plan Discharge Prescriptions: No Action quetiapine 25 mg tablet 25 mg PO BEDTIME RF: 0 trazodone 50 mg tablet 50 mg PO BEDTIME PRN (Reason: Insomnia) RF: 0 hydroxyzine HCl 50 mg tablet 50 mg PO TID PRN (Reason: Anxiety) RF: 0 escitalopram oxalate 20 mg tablet 20 mg PO DAILY RF: 0
[2020-11-04 04:23] LABS: Amphetamine Screen Urine Not Detected (Not Detect); Barbiturates, Urine Not Detected (Not Detect); Benzodiazepines Screen Urine Not Detected (Not Detect); Cannabinoid Screen Urine POSITIVE (Not Detect); Cocaine Screen Urine POSITIVE (Not Detect); Opiate Screen Urine Not Detected (Not Detect); Phencyclidine Screen Urine POSITIVE (Not Detect)
== END 2020-11-04 10:02 ==
PROVIDERS: Emergency Provider Emergency Medicine; PCP Internal Medicine
DX: F19.10 Other psychoactive substance abuse, uncomplicated (principal); Z20.822 Contact with and (suspected) exposure to COVID-19; F41.8 Other specified anxiety disorders; D64.9 Anemia, unspecified; Z79.899 Other long term (current) drug therapy
CPT/HCPCS: 36415; 80307; 81001; 81025; 87635; 99284

== ENCOUNTER 2021-02-06 09:04 | Inpatient (IN) | payer OTHER, SELFPAY ==
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
[2021-02-06] MEDS: diphenhydrAMINE HCL 50 MG/ML VIAL IM (09:31)
[2021-02-06] MEDS: Haloperidol Lactate 5 MG/ML VIAL IM (09:32)
[2021-02-06] MEDS: LORazepam 2 MG/ML VIAL IM (09:32)
[2021-02-06 09:40] VITALS: RESP 16; BMI 32.0
--- NOTE | 2021-02-06 10:53 | PC.NURSE ---
emily from [facility] call at 1052, ETA after 1300
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
--- NOTE | 2021-02-06 11:42 | PHA.MEDREC ---
Pharmacy Consult ? Medication Reconciliation Pharmacy has completed the medication reconciliation. Aysha LacyD
--- NOTE | 2021-02-06 12:04 | MHC.CARE ---
Spoke to patient in 2, she was alert and oriented, stated that she is having withdrawal from PCP and her medications are not addressing her anxiety and PTSD. That program was not a good fit for me, I am not getting the help I need. Call to [facility] Respite and spoke to RN, Quin who gave information about patient. Stated that patient arrived on Saturday, was either a direct or nearly direct step down from a 30 day program (Section 35 in November). By report, patient's mother said, coming home is not an option. Unsure if patient can return to the program and will need a U-Tox. [facility] reached out to Respite director and to ED, they will be working with this patient.
[2021-02-06 16:23] VITALS: RESP 17
[2021-02-06 18:00] VITALS: RESP 16
[2021-02-06 20:10] LABS: Glucose Urine UA NEG (NEG); Leukocyte Esterase Urine NEG (NEG); Nitrite Urine NEG (NEG); Specific Gravity - Urine 1.025 (1.005-1.025); UACC Culture Trigger NO; Urine Blood 3+ (NEG); Urine Ketones 5 MG/DL (NEG); Urine Protein NEG (NEG-TRACE)
[2021-02-06 20:17] LABS: Appearance Urine CLEAR; Color Urine YELLOW
[2021-02-06 20:22] LABS: UPreg QC Valid YES; Urine Pregnancy NEGATIVE (NEGATIVE)
[2021-02-06] MEDS: Escitalopram Oxalate 10 MG TABLET 30 MG PO (20:26)
[2021-02-06] MEDS: hydrOXYzine HCL 50 MG TABLET PO (20:26)
[2021-02-06] MEDS: QUEtiapine Fumarate 50 MG TABLET PO (20:26)
[2021-02-06 20:32] LABS: Amphetamine Screen Urine Not Detected (Not Detect); Barbiturates, Urine Not Detected (Not Detect); Benzodiazepines Screen Urine Not Detected (Not Detect); Cannabinoid Screen Urine Not Detected (Not Detect); Cocaine Screen Urine Not Detected (Not Detect); Fentanyl, urine Not Detected (Not Detect); Opiate Screen Urine Not Detected (Not Detect); Phencyclidine Screen Urine POSITIVE (Not Detect)
[2021-02-06 20:40] LABS: Amorphous Sediment Urine TRACE /LPF; Bacteria Urine TRACE /LPF; Mucus Urine TRACE /LPF; RBC Urine 0-2 /HPF (0); Squamous Epithelial Cell Urine TRACE /LPF
[2021-02-06 22:03] LABS: COVID-19 Test Negative (Negative)
--- NOTE | 2021-02-07 | ECG_ITS ---
Test Reason : PCP USE Blood Pressure : / mmHG Vent. Rate : 066 BPM Atrial Rate : 066 BPM P-R Int : 182 ms QRS Dur : 090 ms QT Int : 450 ms P-R-T Axes : 045 075 052 degrees QTc Int : 471 ms Normal sinus rhythm Normal ECG When compared with ECG of 02-NOV-2020 11:06, No significant change was found Referred By: Nicky Vallejo Electronically Signed By:RAJENDRA CANTU
--- NOTE | 2021-02-07 06:12 | PC.NURSE ---
Patient slept through the night, no distress observed/reported, med compliant, behavior appropriate, disposition per [facility] is section 12 inpatient bed search, will continue to monitor.
[2021-02-07 06:38] VITALS: BP 121/73; PULSE 72; RESP 18; TEMP 37.1; O2SAT 98
[2021-02-07 08:43] VITALS: BP 130/86; PULSE 83; TEMP 37.2; O2SAT 99
[2021-02-07 08:50] VITALS: BP 130/86; PULSE 83
[2021-02-07] MEDS: Ferrous Sulfate 324 MG TABLET.DR PO (08:50)
[2021-02-07] MEDS: hydrOXYzine HCL 50 MG TABLET PO ×2 (08:50→12:06)
[2021-02-07] MEDS: Cyanocobalamin (Vitamin B-12) 1,000 MCG TABLET 1000 MCG PO (08:50)
[2021-02-07] MEDS: cloNIDine HCL 0.1 MG TABLET PO ×2 (08:50→12:06)
[2021-02-07] MEDS: Escitalopram Oxalate 10 MG TABLET 30 MG PO (08:50)
[2021-02-07 11:46] LABS: MANUAL DIFF FLAG NO
[2021-02-07 11:49] LABS: Basophils Percent Auto 0.2 % (0-2); Eosinophils Absolute Auto 0.1 X10*3/uL (0.0-0.4); Eosinophils Percent Auto 0.8 % (0-4); Hematocrit 41.1 % (37-47); Hemoglobin 13.7 g/dl (12.0-16.0); Imm Gran Abs Auto 0.03 X10*3/uL (0.00-0.03); Imm Gran Pct Auto 0.3 % (0.0-0.4); Lymphocytes Absolute Auto 3.4 X10*3/uL (1.2-4.9); Lymphocytes Percent Auto 39.7 % (20-40); Mean Corpuscular HGB Conc 33.3 g/dl (31.0-35.0); Mean Corpuscular Hemoglobin 30.9 pg (27.0-33.0); Mean Corpuscular Volume 92.6 fL (80-98); Mean Platelet Volume 8.8 fL (9.4-12.3); Monocytes Absolute Auto 0.5 X10*3/uL (0.1-1.2); Monocytes Percent Auto 6.3 % (2-11); Neutrophils Absolute Auto 4.5 X10*3/uL (2.0-8.3); Neutrophils Percent Auto 52.7 % (45-73); Platelet Count 306 X10*3/uL (160-400); Red Blood Count 4.44 X10*6/uL (4.20-5.50); White Blood Count 8.6 X10*3/uL (4.8-10.8)
[2021-02-07 12:06] VITALS: BP 130/86; PULSE 83
[2021-02-07 12:08] LABS: Magnesium 2.8 mg/dL (1.6-2.6)
[2021-02-07 12:09] LABS: Alanine Aminotransferase 11 U/L (0-31); Albumin Level 4.6 g/dL (3.5-5.0); Alkaline Phosphatase 72 U/L (39-117); Anion Gap 11 (12-20); Aspartate Amino Transferase 13 U/L (5-31); Bilirubin Total 0.6 mg/dL (0.0-1.0); Blood Urea Nitrogen 16 mg/dL (9-16); Calcium 9.6 mg/dL (8.4-10.2); Carbon Dioxide 27 mmol/L (22-29); Chloride 105 mmol/L (96-108); Creatinine Clr Calc Pharmacy 103.6; Estimated Glomerular Filt Rate > 60; Glucose Random 94 mg/dL (60-115); Lipase 36 U/L (8-78); Potassium 4.4 mmol/L (3.3-5.1); Sodium 139 mmol/L (135-145); Total Protein 7.5 g/dL (6.5-8.0)
[2021-02-07] MEDS: LORazepam 1 MG TABLET 2 MG PO (16:42)
--- NOTE | 2021-02-07 18:22 | PC.ADMIT ---
35 year female admitted from [facility] ED with SI, plan to OD on medications in the context of recent PCP use and psychosocial stressors. Patient reports her recent of cousin and loss of job are precipitating factors to her relapse and have caused her to reflect more on previous traumas, leaving her more depressed and isolative to her family. Calm, tearful, cooperative and engaging on interview. Patient is future oriented, treatment motivated and interested in setting up rehab referrals. Patient reports a period of sobriety prior to recent PCP use. Denies current HI/SI, intent, plan. Denies AVH. Agrees to maintain safety on the unit and seek staff with any needs/concerns.
[2021-02-07] MEDS: QUEtiapine Fumarate 50 MG TABLET PO (20:57)
[2021-02-08 06:00] VITALS: BP 118/73; PULSE 65; RESP 16; TEMP 35.9; O2SAT 98
[2021-02-08 09:08] LABS: Estimated Average Glucose 103 mg/dL; Hemoglobin A1c % 5.2 %
[2021-02-08 09:12] LABS: Cholesterol 170 mg/dL; HDL Cholesterol 39 mg/dL; Iron 61 mcg/dL (30-160); LDL Cholesterol Calculated 117 mg/dl; Magnesium 2.6 mg/dL (1.6-2.6); Percent Iron Saturation 19 % (15-50); Total Iron Binding Capacity 315 mcg/dL (228-428); Triglycerides 72 mg/dL; Unsaturated Iron Binding 254 ug/dL
[2021-02-08 09:26] VITALS: BP 130/80; PULSE 90
[2021-02-08] MEDS: hydrOXYzine HCL 50 MG TABLET PO ×2 (09:26→20:28)
[2021-02-08] MEDS: cloNIDine HCL 0.1 MG TABLET PO (09:26)
[2021-02-08] MEDS: Ferrous Sulfate 324 MG TABLET.DR PO (09:27)
[2021-02-08] MEDS: Escitalopram Oxalate 10 MG TABLET 30 MG PO (09:27)
[2021-02-08 09:32] LABS: Free T4 (Free Thyroxine) 0.89 ng/dL (0.71-1.85); Thyroid Stimulating Hormone 0.25 uIU/mL (0.32-4.0); Vitamin D 25-OH Total 9.6 ng/mL (>30)
[2021-02-08] MEDS: Cyanocobalamin (Vitamin B-12) 1,000 MCG TABLET 1000 MCG PO (09:32)
[2021-02-08 09:44] LABS: Folate 16.7 ng/mL (> or = 4.0); Vitamin B12 537 pg/mL (200-900)
[2021-02-08 16:24] VITALS: BP 126/80; PULSE 86; RESP 18; TEMP 36.7; O2SAT 98
[2021-02-08] MEDS: QUEtiapine Fumarate 50 MG TABLET PO (20:28)
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
[2021-02-08] MEDS: hydrOXYzine HCL 25 MG TABLET PO (22:38)
[2021-02-09 07:00] VITALS: BMI 31.8
[2021-02-09] MEDS: Escitalopram Oxalate 10 MG TABLET 30 MG PO (08:56)
[2021-02-09 08:57] VITALS: BP 125/88; PULSE 88
[2021-02-09] MEDS: hydrOXYzine HCL 50 MG TABLET PO ×2 (08:57→13:13)
[2021-02-09] MEDS: Ferrous Sulfate 324 MG TABLET.DR PO (08:57)
[2021-02-09] MEDS: Cyanocobalamin (Vitamin B-12) 1,000 MCG TABLET 1000 MCG PO (08:57)
[2021-02-09] MEDS: cloNIDine HCL 0.1 MG TABLET PO ×2 (08:57→21:43)
[2021-02-09 09:22] VITALS: RESP 18; TEMP 36.2; O2SAT 97
--- NOTE | 2021-02-09 14:21 | P.PNPSI_ITS ---
Subjective Subjective Date of Service: 02/09/21 Reason For Visit: Panic D/O Polysub abuse w/aggressive behavior Subjective Notes: 3 Day Healthcare Proxy: No Guardianship: No Medical Problems Affecting Mental Status: No Interim History: Pt discussed discharge this a.m. She has a three day notice in- States she came for med eval and aftercare referrals ans she has received this so she is prepared to leave. She denies SI, HI, perceptual alterations. Discussed a discharge plan for 02/10/21. She plans a return to her family (mother, two children). She declines further addictions treatment and is looking forward to spending time in psychotherapy and with a new medication provider. Written information given on PCP for her review. Medication Compliance: Yes Side effects from medications: No Attending Groups: Intermittent Review of Systems Acute medical concerns: No Medical Review of Systems: unchanged Review of Systems Psychiatric: Reports no additional psychiatric complaints and Reports suicidal ideation (denies SI plan or intent) Mental Status Exam Mental Status Exam Patient Appearance: Appropriate Patient Orientation: Person, Place, Time and Situation Level of Consciousness: Alert Patient Behavior: Appropriate, Talkative and Cooperative Mood Description: Calm Affect Description: Calm Patient Cognition Impaired: No Ability to Follow Directions: Good Speech Pattern: Spontaneous Speech Memory Description: Intact Hallucinations: None Delusions: Not Present Thought Process: Intact Thought Content: positive for Intact Depressive Symptoms: Increased Anxiety Judgement: Good Diagnostics Vital Signs (24Hr): Vital Signs - 24 hr 02/08/21 16:24 02/09/21 08:57 02/09/21 09:22 Temperature 98.0 F 97.2 F Pulse Rate 86 88 Respiratory Rate 18 18 Blood Pressure 126/80 125/88 Pulse Oximetry 98 97 Body Mass Index 31.8 Labs Results: 02/07/21 11:41 02/07/21 11:41 Labs: Laboratory Results - last 48 hr 02/08/21 02/08/21 02/08/21 07:54 07:54 07:55 Estimat Average Glucose 103 Hemoglobin A1c % 5.2 Magnesium 2.6 Iron 61 TIBC 315 % Saturation 19 Unsat Iron Binding 254 Triglycerides 72 Cholesterol 170 LDL Cholesterol, Calc 117 HDL Cholesterol 39 Vitamin B12 537 25-OH Vitamin D Total 9.6 Folate 16.7 TSH 0.25 L Free T4 0.89 Medications Medications Current Medications Generic Name Dose Route Start Last Admin Trade Name Freq PRN Reason Stop Dose Admin Acetaminophen 650 mg 02/07/21 16:14 Acetaminophen 325 Mg Tablet PO Q6H PRN Headache/Pain Mild Scale (1-3) Al Hydroxide/Mg Hydroxide 30 ml 02/07/21 16:14 Magnesium Hydrox/Alum Hydrox 30 Ml Oral.Susp PO Q6H PRN Heartburn/Nausea Clonidine HCl 0.1 mg 02/06/21 20:02 02/09/21 08:57 Clonidine Hcl 0.1 Mg Tablet PO 0.1 mg TID PRN Administration Anxiety Protocol Cyanocobalamin 1,000 mcg 02/07/21 09:00 02/09/21 08:57 Cyanocobalamin (Vitamin B-12) 1,000 Mcg Tablet PO 1,000 mcg DAILY EMERY Administration Escitalopram Oxalate 30 mg 02/06/21 20:15 02/09/21 08:56 Escitalopram Oxalate 10 Mg Tablet PO 30 mg DAILY EMERY Administration Ferrous Sulfate 324 mg 02/07/21 09:00 02/09/21 08:57 Ferrous Sulfate 324 Mg Tablet.Dr PO 324 mg DAILY EMERY Administration Hydroxyzine HCl 50 mg 02/06/21 20:02 02/09/21 13:13 Hydroxyzine Hcl 50 Mg Tablet PO 50 mg TID PRN Administration Anxiety Hydroxyzine HCl 25 mg 02/07/21 16:14 02/08/21 22:38 Hydroxyzine Hcl 25 Mg Tablet PO 25 mg BEDTIME PRN Administration Anxiety Lamotrigine 25 mg 02/09/21 21:00 Lamotrigine 25 Mg Tablet PO BEDTIME EMERY Lorazepam 1 mg 02/07/21 16:25 Lorazepam 1 Mg Tablet PO Q4H PRN agitation,anxiety,violence Magnesium Hydroxide 30 ml 02/07/21 16:14 Milk Of Magnesia 30 Ml Oral.Susp PO DAILY PRN Constipation Olanzapine 5 mg 02/07/21 16:25 Olanzapine 5 Mg Tablet PO Q4H PRN psychosis, violence Quetiapine Fumarate 50 mg 02/06/21 21:00 02/08/21 20:28 Quetiapine Fumarate 50 Mg Tablet PO 50 mg BEDTIME EMERY Administration Trazodone HCl 50 mg 02/07/21 16:14 Trazodone Hcl 50 Mg Tablet PO BEDTIME PRN Insomnia Allergies Allergies Allergy/AdvReac Type Severity Reaction Status Date / Time oxycodone [OXYCODONE] Allergy Mild VOMITING Verified 09/08/20 08:48 hydrocodone [From Vicodin] Allergy Unknown upset Verified 09/08/20 08:48 stomach amoxicillin Allergy Rash Verified 09/08/20 08:48 Assessment & Plan Assessment & Plan (1) PTSD (post-traumatic stress disorder): Status: Acute Code(s): F43.10 - Post-traumatic stress disorder, unspecified (2) Major depressive disorder, recurrent severe without psychotic features: Status: Acute Code(s): F33.2 - Major depressive disorder, recurrent severe without psychotic features (3) PCP (phencyclidine) abuse: Status: Acute Code(s): F16.10 - Hallucinogen abuse, uncomplicated (4) Cannabis abuse: Status: Acute Code(s): F12.10 - Cannabis abuse, uncomplicated (5) Panic disorder: Status: Acute Code(s): F41.0 - Panic disorder [episodic paroxysmal anxiety] Assessment and Plan: 35 yo female with a history of PTSD, Depression, Panic Disorder and Substance Abuse, mainly PCP and cannabis. Pt reports SI in the context of unmanaged panic attacks. She is in need of a new prescriber as her previous prescriber terminated with her due to her PCP use. Pt is concerned about having Hepatitis C and asks for assistance in consultation for treatment. Plan: -Continue Lexapro, Quetiapine, Hydroxyzine, Clonidine,Lamictal -Hepatitis Profile -Substance Abuse Education -Discharge on 02/10/21. Greater than 50% of the session was spent on counseling and/or coordination of care Patient educated on: medication risk/benefits, substance abuse and therapeutic strategies Informed Consent: understands and further education needed Reason for contiued inpatient stay Substantial Risk for: harm to self, harm to others, inability to function and rapid decompensation
[2021-02-09 18:00] VITALS: BP 113/67; PULSE 71; RESP 18; TEMP 36.7; O2SAT 98
[2021-02-09 21:43] VITALS: PULSE 71
[2021-02-09] MEDS: lamoTRIgine 25 MG TABLET PO (21:44)
[2021-02-09] MEDS: QUEtiapine Fumarate 50 MG TABLET PO (21:44)
[2021-02-09] MEDS: hydrOXYzine HCL 25 MG TABLET PO (21:44)
[2021-02-09] MEDS: traZODone HCL 50 MG TABLET PO (21:45)
[2021-02-10 08:54] LABS: HBc Num1 0.15 S/CO (0.00-0.79); HBsAGNum1 0.24 S/CO (0.00-0.99); Hepatitis B Core Antibody Nonreactive (Nonreactive); Hepatitis B Surface Antigen Negative (Negative); ~HepC Num1 0.15 S/CO (0.00-0.79); ~Hepatitis C Antibody Nonreactive (Nonreactive)
[2021-02-10] MEDS: Ferrous Sulfate 324 MG TABLET.DR PO (09:10)
[2021-02-10] MEDS: hydrOXYzine HCL 50 MG TABLET PO (09:10)
[2021-02-10 09:11] VITALS: BP 113/65; PULSE 73
[2021-02-10] MEDS: Cyanocobalamin (Vitamin B-12) 1,000 MCG TABLET 1000 MCG PO (09:11)
[2021-02-10] MEDS: cloNIDine HCL 0.1 MG TABLET PO (09:11)
[2021-02-10] MEDS: Escitalopram Oxalate 10 MG TABLET 30 MG PO (09:11)
[2021-02-10 09:14] LABS: HBS Num1 19.51 mIU/mL (0-7.99); Hepatitis A Antibody IgM 0.14 Index (0-0.79); ~Hepatitis A Antibody IgM Nonreactive (Nonreactive); ~Hepatitis B Surface Antibody REACTIVE (Nonreactive)
[2021-02-10 09:45] VITALS: RESP 18; TEMP 36.7; O2SAT 98
[2021-02-10 15:36] LABS: Triiodothyronine T3 Total 79 ng/dL (76-181)
--- NOTE | 2021-02-28 12:56 | PM.PSYDC ---
DS: Providers Provider Date of Service: 02/10/21 Date of admission: 02/07/21 16:14 Date of discharge: 02/10/21 Primary care physician: Blank Weathers MD Admitting clinician: Nicky Vallejo Attending physician on admission: Oscar Orozco Attending physician on discharge: Oscar Orozco Discharging clinician: Nicky Vallejo DS: Diagnosis Discharge Diagnosis (1) PTSD (post-traumatic stress disorder): Status: Acute (2) Major depressive disorder, recurrent severe without psychotic features: Status: Acute (3) PCP (phencyclidine) abuse: Status: Resolved (4) Cannabis abuse: Status: Acute (5) Panic disorder: Status: Acute DS: Medications Discharge Medications Home Medications: Previous Rx's Medication Instructions Recorded clonidine HCl 0.1 mg tablet 1 tab PO TID PRN #45 tab 02/09/21 cyanocobalamin (vitamin B-12) 1 tab PO DAILY #30 tab 02/09/21 1,000 mcg tablet escitalopram oxalate 20 mg tablet 30 mg PO DAILY #45 tab 02/09/21 ferrous sulfate 325 mg (65 mg 1 tab PO DAILY #30 tab 02/09/21 iron) tablet lamotrigine 25 mg tablet 25 mg PO BEDTIME #30 tab 02/09/21 quetiapine 50 mg tablet 1 tab PO BEDTIME #30 tab 02/09/21 trazodone 50 mg tablet 50 mg PO BEDTIME PRN #30 tab 02/09/21 hydroxyzine HCl 50 mg tablet 50 mg PO TID #90 tab 02/10/21 hydroxyzine HCl 50 mg tablet 50 mg PO TID PRN #90 tab 02/10/21 Mental Status Exam Mental Status Exam Patient Appearance: Appropriate Patient Orientation: Person, Place, Time and Situation Level of Consciousness: Alert Patient Behavior: Appropriate, Talkative and Cooperative Mood Description: Calm Affect Description: Calm Patient Cognition Impaired: No Ability to Follow Directions: Good Speech Pattern: Spontaneous Speech Memory Description: Intact Hallucinations: None Delusions: Not Present Thought Process: Intact Thought Content: positive for Intact Judgement: Good DS: Summary Hospital Course Hospital Course: 35 yo female transfer from local [facility] with SI and plan to overdose on medications. Pt found CSS milieu not helpful and triggering and potentiating of her symptoms of depression. She was admitted on a conditional voluntary, worked with nursing and social service teams on symptoms and aftercare planning. Medications were reviewed and titrated and pt chose to return to her home with her mother and children. She will attend [facility] Partial Hospital Program, secured a legal recovery specialist with Jesi O[facility] and has out patient appointments pending with [facility]. Time spent discussing smoking cessation with patient: 3 to 10 minutes Status at Discharge Cognitive/behavioral status at discharge: Alert, oriented, non-suicidal, non-homicidal, non-psychotic, mood stable. Pt agrees with her discharge plan of care. Functional status at discharge: independent ambulation Overall status at discharge: patient is back to baseline Time Spent with Patient Time attestation: Total time spent providing and/or coordinating discharge services:35 Time spent: Greater than 30 minutes Discharge Plan Discharge Anticipated Discharge Date/Time: 02/10/21 14:00 Patient Disposition: Home, Self-Care Discharge Diagnosis: PTSD Recurrent Major Depression, Severe PCP Abuse Cannabis Abuse Referrals: Therapist: Wily Romero ([facility]) [Other] - 02/15/21 2:30 pm (Telehealth) Psych Prescriber: [place] ([facility]) [Other] - 03/08/21 10:00 am (Telehealth) Psych Prescriber: [place] ([facility]) [Other] - 04/04/21 11:30 am (Telehealth) Customer Counter Representative: Jesi Odonnell ([facility]) [Other] - 1 Week (A legal recovery specialist should be reaching out to you by Saturday, 02/14 or Saturday, 02/15. If you haven't heard from anyone please call the above number and let them know you were referred by [facility]. ) Partial Hospitalization Program: ([facility]) [Other] - 02/15/21 10:00 am (Virtual- You will be sent an email to confirm your appointment; you will then receive another email with the link to join the appointment on 02/15. If using a laptop or computer you do not have to download anything; if using a smart phone or tablet you want to have the Smart[employer] rachael downloaded prior to your appointment. ) Mague Cruz MD [Physician] - (Office will call you directly to schedule appointment. ) Discharge Medications: New trazodone 50 mg Tablet 50 mg PO BEDTIME PRN (Reason: Insomnia) Qty: 30 RF: 0 lamotrigine 25 mg Tablet 25 mg PO BEDTIME Qty: 30 RF: 0 hydroxyzine HCl 50 mg Tablet 50 mg PO TID PRN (Reason: Anxiety) Qty: 90 RF: 0 hydroxyzine HCl 50 mg tablet 50 mg PO TID Qty: 90 RF: 0 Continued clonidine HCl 0.1 mg tablet 1 tab PO TID PRN (Reason: Anxiety) Qty: 45 RF: 1 cyanocobalamin (vitamin B-12) 1,000 mcg tablet 1 tab PO DAILY Qty: 30 RF: 0 ferrous sulfate 325 mg (65 mg iron) tablet 1 tab PO DAILY Qty: 30 RF: 0 escitalopram oxalate 20 mg tablet 30 mg PO DAILY Qty: 45 RF: 0 quetiapine 50 mg tablet 1 tab PO BEDTIME Qty: 30 RF: 0 Discontinued hydroxyzine HCl 50 mg tablet 50 mg PO TID PRN (Reason: Anxiety) RF: 0 Discharge Orders: Discharge Order (Routine); Ordered 02/10/21 Ordered By: Nicky Vallejo Diet: advance to usual diet Activity on Discharge: As tolerated Stand Alone Forms: Patient Portal Discharge page, Community Support Care Plan Goals: Sobriety Mood Stabilization Health Concerns: Major Depression PTSD PCP and Cannabis Abuse Hepatitis C-labs ordered, referred to PCP for initiation of care Anemia-continue Ferrous Sulfate Hyperthyroidism history Plan of Treatment: Attend appointments as directed Take medications as directed Assessment: Pt with brighter affect. NO SI/HI. No signs of aggression towards self or others. Discharge Date/Time: 02/10/21 11:35
== END 2021-02-10 11:35 | disposition home or self-care (01) | DRG 751 ==
LOC: HO.ED 09:46 → HO.PM5 02-07 16:20
PROVIDERS: Nurse Practitioner Family; Physician Assistant Medical; Admitting Provider Psychiatry & Neurology Psychiatry; Emergency Provider Emergency Medicine; PCP Internal Medicine; Visit Provider Clinical Nurse Specialist Psychiatric/Mental Health, Adult
DX: F33.2 Major depressive disorder, recurrent severe without psychotic features (principal); F12.10 Cannabis abuse, uncomplicated; F43.10 Post-traumatic stress disorder, unspecified; F16.10 Hallucinogen abuse, uncomplicated; F41.0 Panic disorder [episodic paroxysmal anxiety]; Z20.822 Contact with and (suspected) exposure to COVID-19; Z88.0 Allergy status to penicillin; Z88.5 Allergy status to narcotic agent; Z79.899 Other long term (current) drug therapy
CPT/HCPCS: 36415; 80053; 80061; 80307; 81001; 81025; 82306; 82607; 82746; 83036; 83540; 83690; 83735; 84439; 84443; 84480; 85025; 86704; 86706; 86709; 86803; 87340; 87635; 93005; 96372; 99285; J1200; J2060

== ENCOUNTER 2021-09-04 08:56 | Outpatient (REF) | payer OTHER, SELFPAY ==
[2021-09-04 10:47] LABS: MANUAL DIFF FLAG NO
[2021-09-04 11:04] LABS: Basophils Percent Auto 0.2 % (0-2); Eosinophils Absolute Auto 0.2 X10*3/uL (0.0-0.4); Eosinophils Percent Auto 1.4 % (0-4); Hematocrit 42.6 % (37.0-47.0); Hemoglobin 13.6 g/dl (12.0-16.0); Imm Gran Abs Auto 0.27 X10*3/uL (0.00-0.03); Imm Gran Pct Auto 2.1 % (0.0-0.4); Lymphocytes Absolute Auto 3.6 X10*3/uL (1.2-4.9); Lymphocytes Percent Auto 28.2 % (20-40); Mean Corpuscular HGB Conc 31.9 g/dl (31.0-35.0); Mean Corpuscular Hemoglobin 29.9 pg (27.0-33.0); Mean Corpuscular Volume 93.6 fL (80.0-98.0); Mean Platelet Volume 9.6 fL (9.4-12.3); Monocytes Absolute Auto 0.8 X10*3/uL (0.1-1.2); Monocytes Percent Auto 6.6 % (2-11); Neutrophils Absolute Auto 7.8 x10*3/uL (2.0-8.3); Neutrophils Percent Auto 61.5 % (45-73); Platelet Count 337 X10*3/uL (160-400); Red Blood Count 4.55 X10*6/uL (4.20-5.50); Red Cell Distribution Width 13.3 % (11.0-16.0); White Blood Count 12.7 X10*3/uL (4.8-10.8)
[2021-09-04 11:21] LABS: Alanine Aminotransferase 50 U/L (0-31); Albumin Level 4.8 g/dL (3.5-5.0); Alkaline Phosphatase 98 U/L (39-117); Anion Gap 13 (12-20); Aspartate Amino Transferase 32 U/L (5-31); Bilirubin Total 0.5 mg/dL (0.0-1.0); Blood Urea Nitrogen 7 mg/dL (9-16); Carbon Dioxide 28 mmol/L (22-29); Chloride 101 mmol/L (96-108); Cholesterol 221 mg/dL; Estimated Glomerular Filt Rate > 60; Glucose Fasting 98 mg/dL (60-99); HDL Cholesterol 49 mg/dL; LDL Cholesterol Calculated 123 mg/dl; Potassium 4.5 mmol/L (3.3-5.1); Sodium 137 mmol/L (135-145); Total Protein 7.9 g/dL (6.5-8.0); Triglycerides 247 mg/dL
[2021-09-04 11:33] LABS: Folate 16.8 ng/mL (> or = 4.0); Vitamin B12 591 pg/mL (200-900)
[2021-09-04 11:41] LABS: Free T4 (Free Thyroxine) 0.82 ng/dL (0.71-1.85); Thyroid Stimulating Hormone 0.87 uIU/mL (0.32-4.0)
[2021-09-05 17:25] LABS: Follicle Stimulating Hormone 4.2 mIU/mL; Lutenizing Hormone 8.8 mIU/mL; Prolactin 9.9 ng/mL
[2021-09-05 18:03] LABS: Triiodothyronine T3 Free 4.1 pg/mL (2.3-4.2); Triiodothyronine T3 Total 135 ng/dL (76-181)
[2021-09-08 13:06] LABS: Vitamin D 25-OH, D2 <4 ng/mL; Vitamin D 25-OH, D3 11 ng/mL; Vitamin D 25-OH, Total 11 ng/mL (30-100)
[2021-09-10 01:07] LABS: Estradiol, Ultrasensitive 87 pg/mL
[2021-09-11 08:02] LABS: FT4 by Equilib. Dialysis 0.8 ng/dL (0.9-2.2)
== END 2021-09-04 08:57 | disposition home or self-care (01) ==
LOC: HO.10HDL 08:56
PROVIDERS: Internal Medicine Endocrinology, Diabetes & Metabolism; Visit Provider Internal Medicine
DX: Z00.00 Encounter for general adult medical examination without abnormal findings (principal); E05.90 Thyrotoxicosis, unspecified without thyrotoxic crisis or storm; E78.5 Hyperlipidemia, unspecified; E66.01 Morbid (severe) obesity due to excess calories; Z68.41 Body mass index [BMI] 40.0-44.9, adult; E53.8 Deficiency of other specified B group vitamins; E55.9 Vitamin D deficiency, unspecified; D64.9 Anemia, unspecified
CPT/HCPCS: 36415; 80053; 80061; 82306; 82607; 82670; 82681; 82746; 83001; 83002; 84146; 84439; 84443; 84480; 84481; 85025

== ENCOUNTER 2023-02-06 16:09 | Outpatient (AMB) | payer OTHER, SELFPAY ==
[2023-02-06 16:11] VITALS: BP 148/92; PULSE 91; O2SAT 97; BMI 40.6
--- NOTE | 2023-02-06 16:11 | A.OFFPC_ITS ---
Vital Signs 02/06/23 16:11 Height 5 ft 1 in Weight 215 lb 0.2 oz BMI 40.6 BP 148/92 H Blood Pressure Location Lt brachial Position Sitting Pulse 91 Pulse Source Pulse Oximeter Temp Source Skin Pulse Oximetry (%) 97 Oxygen Delivery Method Room Air Intake Visit Reasons: Physical Exam Intake Note: Patient is here today for a physical. 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 Allergies oxycodone [OXYCODONE] Allergy (Mild, Verified 02/06/23 16:51) VOMITING hydrocodone [From Vicodin] Allergy (Unknown, Verified 02/06/23 16:51) upset stomach amoxicillin Allergy (Verified 02/06/23 16:51) Rash Medication List - Last Reconciled 02/06/23 by MARLON Maciel cholecalciferol (vitamin D3) 25 mcg PO DAILY 90 days clonidine HCl 0.1 mg PO TID PRN 90 days escitalopram oxalate 30 mg (1.5 x 20 mg) PO DAILY ferrous sulfate 325 mg PO DAILY 90 days hydroxyzine HCl 50 mg PO TID PRN Tobacco use date assessed: 02/06/23 Dental Screening Dental Screen Date: 02/06/23 Did you have a dental visit in the last 12 months?: Yes Did you have a dental problem in the last 6 months where you did not have access to dental care?: No Was dental information given to patient?: Patient has dentist HPI Physical Exam HPI Details Patient is a 37-year-old female who presents today for physical exam. Patient of Dr. Hodgson. Medical history significant for anemia, depression with anxiety, GERD, subclinical hyperthyroidism-patient reports she was on medication in the past-medication was stopped due to normal blood work, thyroid nodule, obesity. Patient reports normal Pap smear 2022 with [facility] gynecology. Patient interested in counseling referral due to her mental health. Patient reports fungus on toenails for some time now - would like evaluation for this. She reports intermittent choking sensation, no acid reflux. She denies shortness of breath or chest pain. 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 [facility] Medical History Abnormal TSH Anemia B12 deficiency Cannabis abuse Depression with anxiety Encounter for physical examination GERD (gastroesophageal reflux disease) Hepatitis C Hypovitaminosis D Mild recurrent major depression Miscarriage Morbid obesity with BMI of 40.0-44.9, adult Normocytic anemia Panic attack Polysubstance abuse PTSD (post-traumatic stress disorder) Subclinical hyperthyroidism Syncope and collapse Thyroid nodule Surgical History H/O LEEP History of delivery Family History Father No problems noted. Mother No problems noted. Maternal Aunt Breast cancer Diabetes Heart attack Maternal Grandmother Hypertension Diabetes Social History Household Members: Children Housing: Apartment Do you presently have visiting nurse or other home services: No Alcohol intake: never Patient Tobacco Use Status: Former Tobacco user Cigarettes Per Day: 9 e-Cigarette/Vaping Use: Never Used Second Hand Smoke Exposure: No Substance Use Type: Amphetamines and Marijuana service: No Current occupational status: unemployed Sexual orientation: Did not discuss Cognitive needs: No Hearing needs: No Vision needs: No Questionnaire PHQ-9 Over the last 2 weeks, how often have you been bothered by any of the following problems? 1. Little interest or pleasure in doing things: not at all 2. Feeling down, depressed, or hopeless: not at all 3. Trouble falling or staying asleep, or sleeping too much: not at all 4. Feeling tired or having little energy: not at all 5. Poor appetite or overeating: not at all 6. Feeling bad about yourself - or that you are a failure or have let yourself or your family down: not at all 7. Trouble concentrating on things, such as reading the newspaper or watching television: not at all 8. Moving or speaking so slowly that other people could have noticed. Or the opposite - being so fidgety or restless that you have been moving around a lot more than usual: not at all 9. Thoughts that you would be better off or of hurting yourself in some way: not at all Total score: 0 Depression Screening Interpretation: Negative 61356 - PHQ-9 Billing: Yes Source: Developed by Drs. Skyler Hickey, Allison Mirza, Marcus Blake and colleagues, with an educational carlos from [employer]). Thrive Questionnaire Date Thrive assessed: 02/06/23 I am a: Patient What is your living situation today?: I have a steady place to live Within the past 12 months, did the food you bought not last and you didn't have the money to get more?: Never true Within the past 12 months, did you worry whether your food would run out before you got money to buy more?: Never true Do you have trouble paying for medicines?: No Do you have trouble getting transportation to medical appointments?: No Do you have trouble paying your heating and electricity bill?: No Do you have trouble taking care of your child, family member or friend?: No Do you have trouble with day-to-day activities such as bathing, preparing meals, shopping, managing finances, etc.?: No Are you currently unemployed and looking for a job?: No Are you interested in more education?: No Currently or been in a relationship where the following occur: no concerns reported AUDIT C Alcohol Use Questionnaire (AUDIT-C) 1. How often do you have a drink containing alcohol?: Never Total Score: 0 Score Reviewed/Action Taken: No JAVON-7 AMB Questionnaire JAVON-7 Date JAVON - 7 assessed: 02/06/23 Feeling nervous, anxious, or on edge: 0 = Not at all Not being able to stop or control worryin = Not at all Worrying too much about different things: 0 = Not at all Trouble relaxin = Not at all Being so restless that it is hard to sit still: 0 = Not at all Becoming easily annoyed or irritable: 0 = Not at all Feeling afraid as if something awful might happen: 0 = Not at all Total JAVON-7 score (0-4 normal; 5-9 mild; 10-14 moderate; 15-21 severe): 0 Source: Developed by Drs. Skyler Hickey, Marcus Barrett and colleagues, with an educational carlos from [employer] ([employer]). JAVON-7 Assessment Billing JAVON-7 Assessment Tool: JAVON-7 Assessment 51010 Review of Systems Const Denies body aches, Denies chills, Denies fever(s) and Denies headache(s) Eyes Denies change in vision ENT Reports as per HPI, Denies dizziness, Denies otalgia, Denies headache(s), Denies nasal discharge, Denies sinus pain and Denies sore throat Card Denies chest pain, Denies edema, Denies lightheadedness and Denies dyspnea Resp Denies cough, Denies dyspnea and Denies wheezing GI Denies abdominal pain, Denies constipation, Denies diarrhea, Denies nausea and Denies vomiting Denies dysuria Musc Denies myalgias Skin/Breast Reports as per HPI and Denies rash Neuro Denies dizziness and Denies headache(s) Aller/Immun Denies wheezing Physical exam (Primary Care) Vital Signs: Last Vital Signs Pulse 91 02/06/23 16:11 BP 148/92 H 02/06/23 16:11 Pulse Ox 97 02/06/23 16:11 Oxygen Delivery Method Room Air 02/06/23 16:11 BMI result Body Mass Index 40.6 Tobacco/Smoking Status: Tobacco use Status Tobacco use date assessed 02/06/23 02/06/23 16:13 Patient Tobacco Use Status Former Tobacco user 02/06/23 16:13 e-Cigarette/Vaping Use Never Used 02/06/23 16:13 PHQ-9: PHQ-9 Score PHQ-9: Total score 0 02/06/23 17:21 Depression Screening Interpretation: Negative Thrive Assessment: Date of Thrive Assessment Date Thrive assessed 02/06/23 02/06/23 16:13 Currently or been in a relationship where the following occur: no concerns reported Const General: cooperative and no acute distress Orientation/consciousness: patient oriented x3 HENMT Head: Yes normocephalic and Yes atraumatic Ears: TM's normal bilaterally Face and sinus: Yes sinuses nontender Mouth: oropharynx normal and moist mucous membranes Throat: Yes posterior oropharynx normal Eyes General: appearance normal, both eyes and all related structures Pupils: Equal, round and reactive pupils present EOM: EOMs intact bilaterally Neck Neck: Yes normal visual inspection, Yes full ROM and Yes no lymphadenopathy Thyroid: Thyroid normal Resp Effort & Inspection: normal respiratory effort and able to speak in complete sentences Auscultation: clear to auscultation bilaterally, no crackles, no rales, no rhonchi and no wheezes Cardio Rate: regular rate Rhythm: regular rhythm Heart sounds: S1 normal heart sound present, S2 normal heart sound present and no murmurs GI Palpation (GI): Soft to palpation, not firm, nontender, no guarding, not rigid and no hepatosplenomegaly Auscultation: normal bowel sounds General: No CVA tenderness Back/Spine/Pelvis Back: No CVA tenderness Skin General skin exam: no rashes or lesions noted Neuro General: patient oriented x3 Cranial nerves: Yes Equal, round and reactive pupils present Gait exam (Neuro): Normal gait present Extrem General: Yes full ROM and No edema Assessment and Plan Assessment & Plan (1) Toenail fungus: Code(s): B35.1 - Tinea unguium Plan: Patient has white nail Romanian-unable to assess nails Patient reports great toes with brown discoloration Podiatry refer (2) Thyroid nodule: Code(s): E04.1 - Nontoxic single thyroid nodule Plan: Patient reports intermittent checking sensation Will obtain thyroid ultrasound (3) Morbid obesity with BMI of 40.0-44.9, adult: Code(s): E66.01 - Morbid (severe) obesity due to excess calories; Z68.41 - Body mass index [BMI] 40.0-44.9, adult Plan: Healthy food choices and exercise as tolerated Weight management referral (4) Encounter for physical examination: Code(s): Z00.00 - Encounter for general adult medical examination without abnormal findings (5) Depression with anxiety: Code(s): F41.8 - Other specified anxiety disorders Plan: Counseling referral Continue escitalopram, hydroxyzine and clonidine Plan Blood work ordered Orders: Orders Vitamin D 25-OH Total 02/06/23 E55.9 - Vitamin D deficiency, unspecified US thyroid 02/06/23 E04.1 - Nontoxic single thyroid nodule Mumps Virus IgG Antibody 1 Month Z23 - Encounter for immunization Vitamin B12 and Folate 02/06/23 Z00.00 - Encounter for general adult medical examination without abnormal findings Comprehensive [place]. Panel Fast 02/06/23 Z00.00 - Encounter for general adult medical examination without abnormal findings Lipid Panel 02/06/23 Z00.00 - Encounter for general adult medical examination without abnormal findings TSH reflex Free T4 02/06/23 E04.1 - Nontoxic single thyroid nodule Complete Blood Count Auto Diff 02/06/23 Z00.00 - Encounter for general adult medical examination without abnormal findings Referrals Podiatry Referral B35.1 - Tinea unguium Counseling Referral F41.8 - Other specified anxiety disorders Medical Weight Management Referral E66.01 - Morbid (severe) obesity due to excess calories, Z68.41 - Body mass index [BMI] 40.0-44.9, adult Coding Level of Care Code Est Pt Prev Care 18-39y(84908) Diagnoses Toenail fungus B35.1 Thyroid nodule E04.1 Morbid obesity with BMI of 40.0-44.9, adult E66.01; Z68.41 Encounter for physical examination Z00.00 Depression with anxiety F41.8 Additional Codes JAVON-7 Assessment Billing - JAVON-7 Assessment Tool: JAVON-7 Assessment 93401 ( [id number])
== END 2023-02-06 17:27 | disposition home or self-care (01) ==
PROVIDERS: PCP Internal Medicine; Visit Provider Nurse Practitioner Family
DX: Z00.00 Encounter for general adult medical examination without abnormal findings (principal); E04.1 Nontoxic single thyroid nodule; E66.01 Morbid (severe) obesity due to excess calories; Z68.41 Body mass index [BMI] 40.0-44.9, adult; F41.8 Other specified anxiety disorders; B35.1 Tinea unguium
CPT/HCPCS: 99395

== ENCOUNTER 2023-02-26 14:57 | Outpatient (REF) | payer OTHER, SELFPAY ==
--- NOTE | ~2023-02-26 | US_ITS ---
EXAMINATION: US THYROID CLINICAL INFORMATION: Nontoxic single thyroid nodule. COMPARISON: Ultrasound thyroid 09/20/2020 and 12/27/2014. TECHNIQUE: Linear transducer ledezma-scale and color Doppler examination with attention to the region of the thyroid. FINDINGS: SIZE: Measurements of the thyroid lobes and nodules are given in sagittal, anteroposterior and transverse dimensions respectively. Right Thyroid Lobe: 5.7 x 2.2 x 2.0 cm, volume 13 mL. Previously 6.0 x 1.6 x 1.9 cm, volume 9.8 mL. Parenchyma: The gland echotexture is homogeneous. Thyroid vascularity is normal. Left Thyroid Lobe: 5.8 x 1.8 x 2.0 cm, volume 11 mL. Previously 6.2 x 1.4 x 1.7 cm, volume 7.8 mL. Parenchyma: The gland echotexture is homogeneous. Thyroid vascularity is normal. Isthmus: 0.4 cm in maximum AP dimension. Previously 0.5 cm. Estimated total number of nodules greater than or equal to 1 cm: 0. Claim Manager nodules are described as follows: 1. Location: Isthmus. Size: 0.1 x 0.2 x 0.1 cm, volume 0.001 mL. Previously: 0.4 x 0.2 x 0.3 cm, volume 0.01 mL. Nodule characteristics: Composition: Solid (2). Echogenicity: Hypoechoic (2). Shape: Not taller than wide (0). Margins: Ill-defined (0). Echogenic Foci: None (0). ACR TI-RADS total points: 4 Previous: 3 ACR TI-RADS category: 4 Previous: 3 Significant change in size (>/= 20% in 2 dimensions and minimal increase of 2 mm or 50% or greater increase in volume): No Change in features: No Change in ACR TI-RADS risk category: Yes 2. Location: Left mid. Size: 0.6 x 0.3 x 0.4 cm, volume 0.04 mL. Previously: 0.5 x 0.3 x 0.5 cm, volume 0.04 mL. Nodule characteristics: Composition: Mixed cystic and solid (1). Echogenicity: Hypoechoic (2). Shape: Not taller than wide (0). Margins: Smooth (0). Echogenic Foci: None (0). ACR TI-RADS total points: 3 Previous: 0 ACR TI-RADS category: 3 Previous: 1 Significant change in size (>/= 20% in 2 dimensions and minimal increase of 2 mm or 50% or greater increase in volume): No Change in features: Yes Change in ACR TI-RADS risk category: Yes NODES: No lymphadenopathy is seen in the tissue surrounding the thyroid gland. US/US thyroid IMPRESSION: Left mid 0.6 cm TR 3 and isthmus 0.2 cm TR 4 thyroid nodules. There is no indication for follow-up imaging.. ACR TI-RADS RECOMMENDATION REFERENCE: Ultrasound-guided fine-needle aspiration, follow up ultrasound, no further followup. * TR1 (0 point) and TR2 (2 points): No FNA or followup * TR3 (3 points): FNA if more than or equal to 2.5 cm in maximum dimension, follow up ultrasound in 1, 3 and 5 years if 1.5 to 2.4 cm in maximum dimension. * TR4 (4-6 points): FNA if more than or equal to 1.5 cm in maximum dimension, follow up ultrasound in 1, 2, 3 and 5 years if 1 to 1.4 cm in maximum dimension. * TR5 (more than or equal to 7 points): FNA if more than or equal to 1 cm in maximum dimension, follow up ultrasound every year for 5 years if 0.5 to 0.9 cm in maximum dimension. * TR3, TR4 or TR5 nodules that are below the size threshold for follow up receive no followup.
== END 2023-02-26 14:58 | disposition home or self-care (01) ==
LOC: HO.US 14:57
PROVIDERS: Visit Provider Nurse Practitioner Family
DX: E04.1 Nontoxic single thyroid nodule (principal)
CPT/HCPCS: 76536

== ENCOUNTER 2023-09-09 13:20 | Outpatient (REF) | payer OTHER, SELFPAY ==
[2023-09-09 14:31] LABS: Free T4 (Free Thyroxine) 0.98 ng/dL (0.71-1.85); Thyroid Stimulating Hormone 0.23 uIU/mL (0.32-4.0)
== END 2023-09-09 13:21 | disposition home or self-care (01) ==
LOC: HO.LAB 13:20
PROVIDERS: PCP Internal Medicine; Visit Provider Internal Medicine
DX: E04.1 Nontoxic single thyroid nodule (principal)
CPT/HCPCS: 36415; 84439; 84443

== ENCOUNTER 2023-10-03 09:50 | Outpatient (AMB) | payer OTHER, SELFPAY ==
--- NOTE | 2023-10-03 09:51 | MHC.PC.OV ---
Vital Signs 10/03/23 09:54 Height 5 ft 1 in Weight 198 lb BMI 37.4 BP 134/82 Blood Pressure Location Lt brachial Position Sitting Intake Visit Reasons: [facility] SOB Mutuel Teller Required: No Accompanied by: Self / Same As Patient Allergies oxycodone [OXYCODONE] Allergy (Mild, Verified 10/03/23 10:09) VOMITING hydrocodone [From Vicodin] Allergy (Unknown, Verified 10/03/23 10:09) upset stomach amoxicillin Allergy (Verified 10/03/23 10:09) Rash Medication List - Last Reconciled 10/03/23 by Mague Salas MD albuterol sulfate 90 mcg/actuation 2 puffs inhalation Q4-6H PRN cholecalciferol (vitamin D3) 25 mcg PO DAILY 90 days clonidine HCl 0.1 mg PO TID PRN 90 days ferrous sulfate 325 mg PO DAILY 90 days hydroxyzine HCl 50 mg PO TID PRN Tobacco use date assessed: 10/03/23 Dental Screening Dental Screen Date: 10/03/23 Did you have a dental visit in the last 12 months?: Yes Did you have a dental problem in the last 6 months where you did not have access to dental care?: No Was dental information given to patient?: Patient has dentist HPI HPI Comments History of Present Illness Details This is a 38-year-old female with mild recurrent major depression in remission, hyperthyroidism, moderate asthma and low vitamin-D that comes today complaining of wheezing and nasal congestion that started over a week ago. Went to urgent care due to this matter and was prescribed a rescue inhaler and she is still wheezing. She also used cetirizine daily and still have allergies. Depression in remission. TSH was low and has an appointment with endocrinology at [facility] in November. On vitamin-D supplements for her low vitamin-D. I will give her antibiotics and a prednisone pack for her asthma exacerbation as well as a long-acting inhaler. Will order pulmonary function test due to persistent shortness of breath and wheezing. [facility] Medical History (Updated 10/03/23 @ 11:26 by aMgue Salas MD) Hypovitaminosis D Mild recurrent major depression B12 deficiency Thyroid nodule Morbid obesity with BMI of 40.0-44.9, adult Encounter for physical examination Cannabis abuse PTSD (post-traumatic stress disorder) Panic attack Polysubstance abuse Hepatitis C Subclinical hyperthyroidism GERD (gastroesophageal reflux disease) Syncope and collapse Normocytic anemia Abnormal TSH Depression with anxiety Miscarriage Anemia Surgical History H/O LEEP History of delivery Family History Father No problems noted. Mother No problems noted. Maternal Aunt Breast cancer Diabetes Heart attack Maternal Grandmother Hypertension Diabetes Social History Household Members: Children Housing: Apartment Do you presently have visiting nurse or other home services: No Alcohol intake: never Patient Tobacco Use Status: Current someday Tobacco user Tobacco use type: Cigarette Cigarettes Per Day: 2 e-Cigarette/Vaping Use: Never Used Second Hand Smoke Exposure: No Substance Use Type: Amphetamines and Marijuana service: No Current occupational status: employed Current occupational exposures/hazards: No Sexual orientation: Did not discuss Cognitive needs: No Hearing needs: No Vision needs: No Questionnaire PHQ-9 Over the last 2 weeks, how often have you been bothered by any of the following problems? 1. Little interest or pleasure in doing things: not at all 2. Feeling down, depressed, or hopeless: not at all 3. Trouble falling or staying asleep, or sleeping too much: not at all 4. Feeling tired or having little energy: not at all 5. Poor appetite or overeating: not at all 6. Feeling bad about yourself - or that you are a failure or have let yourself or your family down: not at all 7. Trouble concentrating on things, such as reading the newspaper or watching television: not at all 8. Moving or speaking so slowly that other people could have noticed. Or the opposite - being so fidgety or restless that you have been moving around a lot more than usual: not at all 9. Thoughts that you would be better off or of hurting yourself in some way: not at all Total score: 0 Depression Screening Interpretation: Negative Depression Screening Done: Yes 03162 - PHQ-9 Billing: Yes Source: Developed by Drs. Skyler Hickey, Allison B.WMarcus Cook and colleagues, with an educational carlos from [employer]. Thrive Questionnaire Date Thrive assessed: 10/03/23 I am a: Patient What is your living situation today?: I have a steady place to live Within the past 12 months, did the food you bought not last and you didn't have the money to get more?: Never true Within the past 12 months, did you worry whether your food would run out before you got money to buy more?: Never true Do you have trouble paying for medicines?: No Do you have trouble getting transportation to medical appointments?: No Do you have trouble paying your heating and electricity bill?: No Do you have trouble taking care of your child, family member or friend?: No Do you have trouble with day-to-day activities such as bathing, preparing meals, shopping, managing finances, etc.?: No Are you currently unemployed and looking for a job?: No Are you interested in more education?: No Please select the resources that you would like help with: None Currently or been in a relationship where the following occur: no concerns reported THRIVE Score: 0 AUDIT C Alcohol Use Questionnaire (AUDIT-C) 1. How often do you have a drink containing alcohol?: Never Total Score: 0 JAVON-7 AMB Questionnaire JAVON-7 Date JAVON - 7 assessed: 10/03/23 Feeling nervous, anxious, or on edge: 0 = Not at all Not being able to stop or control worryin = Not at all Worrying too much about different things: 0 = Not at all Trouble relaxin = Not at all Being so restless that it is hard to sit still: 0 = Not at all Becoming easily annoyed or irritable: 0 = Not at all Feeling afraid as if something awful might happen: 0 = Not at all Total JAVON-7 score (0-4 normal; 5-9 mild; 10-14 moderate; 15-21 severe): 0 Source: Developed by Drs. Skyler Hickey, Marcus Barrett and colleagues, with an educational carlos from [employer]. JAVON-7 Assessment Billing JAVON-7 Assessment Tool: JAVON-7 Assessment 94240 Review of Systems Const All systems reviewed & are unremarkable except as noted in HPI and below Eyes Reports no additional complaints, Denies change in vision and Denies other visual disturbances Card Denies chest pain at rest, Denies chest pain with activity, Denies edema, Denies irregular heart rhythm, Denies claudication, Reports dyspnea, Denies dyspnea on exertion, Denies orthopnea, Denies paroxysmal nocturnal dyspnea and Denies slow heart rate Resp Reports cough, Reports dyspnea, Denies dyspnea on exertion and Reports wheezing Aller/Immun Reports wheezing Physical exam (Primary Care) Vital Signs: Last Vital Signs BP 134/82 10/03/23 09:54 BMI result Body Mass Index 37.4 Tobacco/Smoking Status: Tobacco use Status Tobacco use date assessed 10/03/23 10/03/23 09:59 Patient Tobacco Use Status Current someday Tobacco 10/03/23 09:59 Tobacco use type Cigarette 10/03/23 09:59 e-Cigarette/Vaping Use Never Used 10/03/23 09:58 PHQ-9: PHQ-9 Score PHQ-9: Total score 0 10/03/23 09:58 Depression Screening Interpretation: Negative Thrive Assessment: Date of Thrive Assessment Date Thrive assessed 10/03/23 10/03/23 09:58 Currently or been in a relationship where the following occur: no concerns reported Resp Effort & Inspection: normal respiratory effort Auscultation: clear to auscultation bilaterally Cardio Jugular venous distension: no JVD Rate: regular rate Rhythm: regular rhythm Heart sounds: S1 normal heart sound present and S2 normal heart sound present Extrem General: Yes full ROM Assessment and Plan Assessment & Plan (1) Mild recurrent major depression: Code(s): F33.0 - Major depressive disorder, recurrent, mild Plan: In remission. (2) Hyperthyroidism: Code(s): E05.90 - Thyrotoxicosis, unspecified without thyrotoxic crisis or storm Plan: Follow-up with endocrinology in November. (3) Hypovitaminosis D: Code(s): E55.9 - Vitamin D deficiency, unspecified Plan: Continue vitamin-D supplements. (4) Moderate asthma: Code(s): J45.909 - Unspecified asthma, uncomplicated Plan: Use rescue inhaler. Start long-acting inhaler. Start prednisone pack. Orders: Orders PFT pulmonary function test Today J45.909 - Unspecified asthma, uncomplicated Medications: New prednisone Take 4 tabs for 2 days, then 3 tabs for 2 days, then 2 tabs for 2 days, then 1 tab for 2 days 10 mg PO DIRECTED 8 days 20 tabs 0RF budesonide-formoterol 80-4.5 mcg/actuation 1 inh inhalation BID 30 days 10.2 grams 6RF doxycycline hyclate 100 mg PO BID 5 days 10 tabs 0RF Ventolin HFA 90 mcg/actuation (albuterol sulfate) 2 puffs inhalation Q6H 30 days PRN 18 grams 0RF shortness of breath or wheezing NS Discontinued ferrous sulfate Discontinued Reason: No Longer Medically Relevant 325 mg PO DAILY 90 days 90 tabs 1RF Coding Level of Care Code Est Pt Level 4 (54044) Diagnoses Mild recurrent major depression F33.0 Hyperthyroidism E05.90 Hypovitaminosis D E55.9 Moderate asthma J45.909 Additional Codes JAVON-7 Assessment Billing - JAVON-7 Assessment Tool: JAVON-7 Assessment 51347 ([id number]) Time Spent (min) 21
[2023-10-03 09:54] VITALS: BP 134/82; BMI 37.4
== END 2023-10-03 10:26 | disposition home or self-care (01) ==
PROVIDERS: PCP Internal Medicine; Visit Provider Internal Medicine
DX: J45.909 Unspecified asthma, uncomplicated (principal); F33.0 Major depressive disorder, recurrent, mild; E05.90 Thyrotoxicosis, unspecified without thyrotoxic crisis or storm; E55.9 Vitamin D deficiency, unspecified
CPT/HCPCS: 99214

== ENCOUNTER 2023-11-22 13:54 | Outpatient (AMB) | payer OTHER, SELFPAY ==
[2023-11-22 13:55] VITALS: BP 140/90; PULSE 100; O2SAT 98; BMI 39.6
--- NOTE | 2023-11-22 13:55 | MHC.OFFVIS ---
Vital Signs 11/22/23 13:55 Height 5 ft 1 in Weight 209 lb 8 oz BMI 39.6 BP 140/90 H Blood Pressure Location Lt brachial Position Sitting Pulse 100 Pulse Source Pulse Oximeter Pulse Oximetry (%) 98 Oxygen Delivery Method Room Air Intake Visit Reasons: Dyspnea Allergies oxycodone [OXYCODONE] Allergy (Mild, Verified 11/22/23 13:59) VOMITING hydrocodone [From Vicodin] Allergy (Unknown, Verified 11/22/23 13:59) upset stomach amoxicillin Allergy (Verified 11/22/23 13:59) Rash HPI HPI Dyspnea: Details: Andrey is a pleasant 38 year old female, current minimal smoker with less than 10 pack year history with underlying asthma, anemia, depression with anxiety, GERD, subclinical hyperthyroidism. She was referred by PCP for pulmonary evaluation. She reports worsening control of asthma since this Spring. She has been evaluated in the ED and urgent care, given albuterol MDI and steroids with good effect. She was last evaluated by PCP in September given doxycyline for sinusitis and started on symbicort 80 mcg 1 inhalations BID. She reports symptoms have mildly improved on Symbicort and continues to have wheezing, dry cough and dyspnea. She notes asthma since childhood, never requiring intubations. She attributes worsening control to environmental allergies, no recent allergy testing. She notes having an asthma exacerbation that started at work, longterm with wall to wall carpeting. She has been using zyrtec and flonase with little to no effect. She has a cat and dog at home. She reports brothers with asthma otherwise no pertinent family history. She denies any prolonged occupational exposures. [facility] Medical History (Updated 11/22/23 @ 20:22 by Romelia Williamson NP) Hypovitaminosis D Mild recurrent major depression B12 deficiency Thyroid nodule Morbid obesity with BMI of 40.0-44.9, adult Encounter for physical examination Cannabis abuse PTSD (post-traumatic stress disorder) Panic attack Polysubstance abuse Hepatitis C Subclinical hyperthyroidism GERD (gastroesophageal reflux disease) Syncope and collapse Normocytic anemia Abnormal TSH Depression with anxiety Miscarriage Anemia Surgical History H/O LEEP History of delivery Family History Father No problems noted. Mother No problems noted. Maternal Aunt Breast cancer Diabetes Heart attack Maternal Grandmother Hypertension Diabetes Social History (Reviewed 11/22/23 @ 13:59 by Monik Donaldson [facility]) Household Members: Children Housing: Apartment Do you presently have visiting nurse or other home services: No Alcohol intake: never Patient Tobacco Use Status: Current someday Tobacco user Tobacco use type: Cigarette Cigarettes Per Day: 2 e-Cigarette/Vaping Use: Never Used Second Hand Smoke Exposure: No Substance Use Type: Amphetamines and Marijuana service: No Current occupational status: employed Current occupational exposures/hazards: No Sexual orientation: Did not discuss Cognitive needs: No Hearing needs: No Vision needs: No Review of Systems Const Denies chills, Denies excessive sweating, Denies fever(s), Denies headache(s) and Denies night sweats Eyes Denies dry eyes, Denies irritation and Denies itchy eyes ENT Reports Normal hearing present and Denies headache(s) Card Denies chest pain, Denies chest pain at rest, Denies chest pain with activity, Denies claudication, Denies leg edema and Denies paroxysmal nocturnal dyspnea Resp Denies chest congestion, Denies excessive phlegm production, Denies pain on inspiration, Denies pain with cough and Denies stridor Musc Denies myalgias Neuro Reports Normal hearing present and Denies headache(s) Endo Denies excessive sweating Dio/Lymph Denies lymphadenopathy Aller/Immun Denies itchy eyes and Denies seasonal rhinorrhea Physical Exam Vital Signs: Last Vital Signs Pulse 100 11/22/23 13:55 BP 140/90 H 11/22/23 13:55 Pulse Ox 98 11/22/23 13:55 Oxygen Delivery Method Room Air 11/22/23 13:55 BMI result Body Mass Index 39.6 Const General: cooperative, healthy appearing, comfortable, no acute distress, well developed and alert Nutritional Appearance: obese Orientation/consciousness: patient oriented x3 Limitations: no limitations HEENT Head: Yes normal to inspection, Yes normocephalic and Yes atraumatic Ears: hearing grossly normal bilaterally and external ears normal Eyes General: appearance normal, both eyes and all related structures Eyelids: Yes eyelids normal Sclerae: sclerae normal EOM: EOMs intact bilaterally Neck Neck: Yes normal visual inspection and Yes no lymphadenopathy Lymphatic: no lymphadenopathy noted Chest Chest palpation & inspection: normal inspection of the chest Resp Effort & Inspection: normal respiratory effort, able to speak in complete sentences, no audible wheezes, no cough, no stridor, not tachypneic, no tripod positioning and no use of accessory muscles Auscultation: clear to auscultation bilaterally Cardio Jugular venous distension: no JVD Rate: regular rate Rhythm: regular rhythm Skin Other: warm, dry General skin exam: no rashes or lesions noted Neuro General: patient oriented x3 Cranial nerves: Yes Normal hearing present Cognition (Neuro): normal cognition Gait exam (Neuro): Normal gait present Extrem General: Yes normal to inspection, Yes capillary refill normal, Yes no clubbing, cyanosis or edema and Yes no pedal edema Psych Appearance: grossly normal and well kempt Speech and movement: Normal speech and movement present and Clear speech present Affect: normal affect Attitude: cooperative Thought process: Normal thought process present Thought content: Normal thought content present Insight: Good insight present (Psych) Judgement: Good judgement present (Psych) Assessment & Plan Assessment & Plan (1) Asthma: Code(s): J45.909 - Unspecified asthma, uncomplicated Category: Medical (2) Environmental allergies: Code(s): Z91.09 - Other allergy status, other than to drugs and biological substances Category: Medical Plan Andrey's symptoms are likely related to underlying asthma with an allergic contribution. Will send for PFT and RAST. Recommended patient increase Symbicort to 2 inhalations BID, as she reports suboptimal control and frequent use of albuterol. Will also start patient on Singulair, which she has tolerated in the past. Patient reports recent CXR at [facility], will request. All questions were answered and patient is in agreement of plan. Will follow up to review results and response to medications. Orders: Orders Resp Allergy Profile Region I Today Z91.09 - Other allergy status, other than to drugs and biological substances Complete Blood Count Auto Diff Today J45.909 - Unspecified asthma, uncomplicated, Z91.09 - Other allergy status, other than to drugs and biological substances PFT pulmonary function test Today J45.909 - Unspecified asthma, uncomplicated Immunoglobulin E Today Z91.09 - Other allergy status, other than to drugs and biological substances Medications: New montelukast (Singulair) 10 mg PO BEDTIME 30 tabs 3RF albuterol sulfate 90 mcg/actuation 2 puffs inhalation Q4-6H PRN 1 ea 3RF shortness of breath or wheezing Changed From budesonide-formoterol 80-4.5 mcg/actuation 1 inh inhalation BID 30 days 10.2 grams 6RF To budesonide-formoterol 80-4.5 mcg/actuation 2 inhalations inhalation BID 30 days 10.2 grams 3RF Discontinued Ventolin HFA 90 mcg/actuation (albuterol sulfate) Discontinued Reason: Patient Completed Course 2 puffs inhalation Q6H 30 days PRN 18 grams 0RF shortness of breath or wheezing NS Coding Level of Care Code New Pt Level 4 (70628) Diagnoses Asthma J45.909 Environmental allergies Z91.09
== END 2023-11-22 14:27 | disposition home or self-care (01) ==
PROVIDERS: PCP Internal Medicine; Visit Provider Nurse Practitioner Family
DX: J45.909 Unspecified asthma, uncomplicated (principal); Z91.09 Other allergy status, other than to drugs and biological substances
CPT/HCPCS: 99204

== ENCOUNTER → 2023-11-22 13:54 | Outpatient (BNVA) | payer OTHER, SELFPAY | PROVIDERS: PCP Internal Medicine; Visit Provider Nurse Practitioner Family | DX: J45.909 Unspecified asthma, uncomplicated (principal); Z91.09 Other allergy status, other than to drugs and biological substances; Z79.899 Other long term (current) drug therapy | CPT/HCPCS: 99202 ==

== ENCOUNTER 2023-11-29 13:43 | Outpatient (REF) | payer OTHER, SELFPAY ==
[2023-11-29 17:53] LABS: MANUAL DIFF FLAG NO
[2023-11-29 17:58] LABS: Basophils Percent Auto 0.3 % (0-2); Eosinophils Absolute Auto 0.3 X10*3/uL (0.0-0.4); Eosinophils Percent Auto 2.5 % (0-4); Hematocrit 39.6 % (37.0-47.0); Hemoglobin 12.9 g/dl (12.0-16.0); Imm Gran Abs Auto 0.09 X10*3/uL (0.00-0.03); Imm Gran Pct Auto 0.9 % (0.0-0.4); Lymphocytes Absolute Auto 3.9 X10*3/uL (1.2-4.9); Lymphocytes Percent Auto 37.4 % (20-40); Mean Corpuscular HGB Conc 32.6 g/dl (31.0-35.0); Mean Corpuscular Hemoglobin 29.7 pg (27.0-33.0); Mean Platelet Volume 9.6 fL (9.4-12.3); Monocytes Absolute Auto 0.5 X10*3/uL (0.1-1.2); Monocytes Percent Auto 5.1 % (2-11); Neutrophils Absolute Auto 5.6 x10*3/uL (2.0-8.3); Neutrophils Percent Auto 53.8 % (45-73); Platelet Count 388 X10*3/uL (160-400); Red Blood Count 4.35 X10*6/uL (4.20-5.50); Red Cell Distribution Width 13.2 % (11.0-16.0); White Blood Count 10.4 X10*3/uL (4.8-10.8)
[2023-11-29 18:17] LABS: Alanine Aminotransferase 18 U/L (0-31); Albumin Level 4.6 g/dL (3.5-5.0); Alkaline Phosphatase 80 U/L (39-117); Anion Gap 13 (12-20); Aspartate Amino Transferase 15 U/L (5-31); Bilirubin Total 0.2 mg/dL (0.0-1.0); Blood Urea Nitrogen 12 mg/dL (9-16); Calcium 9.4 mg/dL (8.4-10.2); Carbon Dioxide 23 mmol/L (22-29); Chloride 108 mmol/L (96-108); Cholesterol 203 mg/dL (<200); Estimated Glomerular Filt Rate > 60; Glucose Fasting 104 mg/dL (60-99); HDL Cholesterol 44 mg/dL (>40); LDL Cholesterol Calculated 122 mg/dL (<100); Potassium 4.2 mmol/L (3.3-5.1); Sodium 140 mmol/L (135-145); Total Protein 7.7 g/dL (6.5-8.0); Triglycerides 186 mg/dL (<150)
[2023-11-29 18:34] LABS: TSH reflex Free T4 0.17 uIU/mL (0.32-4.0); Thyroid Stimulating Hormone 0.17 uIU/mL (0.32-4.0); Vitamin D 25-OH Total 31.9 ng/mL (>30)
[2023-11-29 18:45] LABS: Folate 11.5 ng/mL (> or = 4.0); Vitamin B12 330 pg/mL (200-900)
[2023-11-29 19:04] LABS: Free T4 (Free Thyroxine) 0.85 ng/dL (0.71-1.85)
[2023-12-05 08:56] LABS: Class Alternaria alternata 0; Class Aspergillus fumigatus 0; Class Bermuda Grass 2; Class Birch 4; Class Cat Dander 4; Class Cladosporium herbarum 0; Class Cockroach 0; Class Common Ragweed 4; Class Cottonwood 3; Class Derm. pterony 2; Class Dermatophagoides farinae 3; Class Dog Dander 4; Class Elm 3; Class Maple Box Elder 3; Class Mountain Cedar 2; Class Mouse Urine Protein 0; Class Mugwort 2; Class Oak 4; Class Penicillium crysogenum 0; Class Rough Pigweed 2; Class Sheep Sorrel 3; Class Sycamore 3; Class Timothy Grass 3; Class Walnut Tree 3; Class White Ash 3; Class White Mulberry 0; D001 IgE D pteronyssinus 3.33 kU/L; D002 - IgE D farinae 3.73 kU/L; E072-IgE Mouse Urine <0.10 kU/L; G002 IgE Bermuda Grass 3.45 kU/L; G006 - IgE Timothy Grass 5.42 kU/L; I006-IgE Cockroach, German <0.10 kU/L; Immunoglobulin E 525 kU/L (<OR=114); M001 IgE Penicillium chrysogen <0.10 kU/L; M002 - IgE Cladosporium herbar <0.10 kU/L; M003 - IgE Aspergillus fumigat <0.10 kU/L; M006 - IgE Alternaria alternat <0.10 kU/L; T001 IgE Maple/Box Elder 4.18 kU/L; T006 - IgE Cedar, Mountain 1.17 kU/L; T008 IgE Elm, American 5.77 kU/L; T010 - IgE Walnut 8.91 kU/L; T014 - IgE Cottonwood 4.04 kU/L; T015 - IgE Ash, White 9.05 kU/L; T070 - IgE White Mulberry <0.10 kU/L; W006 - IgE Mugwort 1.96 kU/L; W014 IgE Pigweed, Common 3.09 kU/L; W018 IgE Sheep Sorrel 4.25 kU/L
== END 2023-11-29 13:44 | disposition home or self-care (01) ==
LOC: HO.WFDLDS 13:43
PROVIDERS: Nurse Practitioner Family; Visit Provider Internal Medicine
DX: Z00.00 Encounter for general adult medical examination without abnormal findings (principal); E55.9 Vitamin D deficiency, unspecified; E04.1 Nontoxic single thyroid nodule; E05.90 Thyrotoxicosis, unspecified without thyrotoxic crisis or storm; Z91.09 Other allergy status, other than to drugs and biological substances; J45.909 Unspecified asthma, uncomplicated
CPT/HCPCS: 36415; 80053; 80061; 82306; 82607; 82746; 82785; 84439; 84443; 85025; 86003; 86735

== ENCOUNTER → 2024-02-06 13:27 | Outpatient (RCR) | payer OTHER, SELFPAY ==
[2020-08-22 09:42] VITALS: BP 162/111; PULSE 82; RESP 12; TEMP 36.3; O2SAT 98; BMI 35.2
--- NOTE | 2020-08-22 10:25 | MHC.HEMONCMA ---
Patient being seen for a consult today for normocytic anemia, states that she has alot going on and might be . I asked if she had an OB and she states that she does so she is going to call them for that. Clinical summary was reviewed and updated. Patient had labs and will have a 1 month telehealth appt.
[2020-08-22 10:30] LABS: MANUAL DIFF FLAG NO
[2020-08-22 10:40] LABS: Basophils Percent Auto 0.3 % (0-2); Eosinophils Absolute Auto 0.1 X10*3/uL (0.0-0.4); Eosinophils Percent Auto 1.3 % (0-4); Hematocrit 39.9 % (37-47); Hemoglobin 12.7 g/dl (12.0-16.0); Imm Gran Abs Auto 0.06 X10*3/uL (0.00-0.03); Imm Gran Pct Auto 0.6 % (0.0-0.4); Immature Retic Fraction 13.6 % (3.0-15.9); Lymphocytes Absolute Auto 3.9 X10*3/uL (1.2-4.9); Mean Corpuscular HGB Conc 31.8 g/dl (31.0-35.0); Mean Corpuscular Hemoglobin 28.7 pg (27.0-33.0); Mean Corpuscular Volume 90.3 fL (80-98); Mean Platelet Volume 9.3 fL (9.4-12.3); Monocytes Absolute Auto 0.7 X10*3/uL (0.1-1.2); Monocytes Percent Auto 6.6 % (2-11); Neutrophils Absolute Auto 5.8 X10*3/uL (2.0-8.3); Neutrophils Percent Auto 54.2 % (45-73); Platelet Count 353 X10*3/uL (160-400); Red Blood Count 4.42 X10*6/uL (4.20-5.50); Red Cell Distribution Width 15.9 % (11.0-16.0); Retic HGB Equivalent 32.8 pg (30.0-35.0); Reticulocyte Percent 1.9 % (0.5-1.8); Reticulocytes Absolute 0.082 X10*6/uL (0.026-0.095); White Blood Count 10.7 X10*3/uL (4.8-10.8)
[2020-08-22 11:00] LABS: Iron 175 mcg/dL (30-160); Percent Iron Saturation 42 % (15-50); Total Iron Binding Capacity 415 mcg/dL (228-428); Unsaturated Iron Binding 240 ug/dL
[2020-08-22 11:21] LABS: Ferritin 12 ng/mL (10-122)
[2020-08-22 11:54] LABS: Folate 13.5 ng/mL (> or = 4.0); Vitamin B12 283 pg/mL (200-900)
--- NOTE | 2020-08-22 13:03 | PM.HEMONCCN ---
Subjective - Subjective Chief complaint: Fatigue Consult date: 08/22/20 Primary Care Provider: Mague Salas MD Medical Summary: Diagnosis: Iron deficiency anemia HPI - Consult Narrative Reason for consult: Iron deficiency anemia Narrative: Andrey Durham is a 35 year old female referred for evaluation of anemia. Patient states that she has had a few problems with pregnancies in last few years. She has had 5 pregnancies so far and 2 live births. She had 1 miscarriage in 1 stillbirth. She received a blood transfusion sometime last year after a miscarriage and excessive bleeding. She is taking iron supplementation once a day for about 2 months. She has been told of intermittent anemia. There is no family history of thalassemia or GI malignancies. Review of Systems - Constitutional Denies anorexia, Denies chills, Reports fatigue, Denies fever(s), Denies lack of energy, Denies poor appetite, Denies weight loss - Cardiovascular Denies chest pain - Respiratory Denies cough, Denies dyspnea - Gastrointestinal Denies black, tarry stools, Denies bloating, Denies bright, red blood in stools, Denies change in bowel habits [facility] Medical History: Medical History (Last Reviewed 07/19/20 @ 15:15 by Mague Salas MD) Abnormal TSH Anemia Depression with anxiety GERD (gastroesophageal reflux disease) Miscarriage Normocytic anemia Syncope and collapse Family History: Family History (Last Updated 08/22/20 @ 09:46 by Jazmine Villegas) Father No problems noted. Mother No problems noted. Maternal Aunt Breast cancer Diabetes Heart attack Maternal Grandmother Hypertension Diabetes Surgical History: Surgical History (Last Reviewed 07/19/20 @ 15:20 by Mague Salas MD) H/O LEEP History of delivery Social History: Social History (Last Updated 08/22/20 @ 09:47 by Jazmine Villegas) Alcohol History: Alcohol intake: current Alcohol History Details: Alcohol intake frequency: holiday/special occasion Tobacco History: Smoking Status: Former smoker Packs Per Day: 0.5 Cigarettes Per Day: 10.0 Smoking Quit Date: 2015 Substance Use History: Use of substances other than those prescribed or required for medical reasons: Yes Substance Use Type: Marijuana Smoking status: Former smoker Home Medications and Allergies Home Medications Medication Instructions Recorded Confirmed Type escitalopram oxalate 20 mg tablet 20 mg PO DAILY 07/04/20 08/22/20 History hydroxyzine HCl 50 mg tablet 50 mg PO TID 07/04/20 08/22/20 History quetiapine 25 mg tablet 25 mg PO BEDTIME 07/04/20 08/22/20 History trazodone 50 mg tablet 50 mg PO BEDTIME 07/04/20 08/22/20 History Allergies Allergy/AdvReac Type Severity Reaction Status Date / Time oxycodone [OXYCODONE] Allergy Mild VOMITING Verified 07/19/20 15:14 hydrocodone [From Vicodin] Allergy Unknown upset Verified 07/19/20 15:14 stomach amoxicillin Allergy Rash Verified 08/22/20 09:48 Physical Exam Vital signs: Vital Signs Temp 97.4 F 08/22/20 09:42 Pulse 82 08/22/20 09:42 Resp 12 08/22/20 09:42 BP 162/111 H 08/22/20 09:42 Pulse Ox 98 08/22/20 09:42 Intake & Output 08/21/20 08/22/20 08/22/20 18:59 06:59 18:59 Other: Weight 84.4 kg [place] Weight in Grams [id number] Weight 84.4 kg - Constitutional Present: no acute distress - Routine HEENT Exam Head: Present: normal inspection Eye: Present: EOMI, PERRL - Routine Neck Exam Absent: lymphadenopathy - Routine Respiratory Exam Absent: respiratory distress - Routine Cardiovascular Exam Cardiovascular: Present: S1, S2 Hem/Onc Consult Result - Labs CBC & Chem 7: 08/22/20 10:13 Labs: Short CBC 08/22/20 Range/Units 10:13 WBC 10.7 (4.8-10.8) X10*3/uL Hgb 12.7 (12.0-16.0) g/dl Hct 39.9 (37-47) % Plt Count 353 (160-400) X10*3/uL Assessment and Plan (1) Anemia Status: Acute Qualifiers: Anemia type: iron deficiency 1. This is a 35-year-old woman with probable iron deficiency anemia related to blood losses from recent miscarriage and other losses. She has responded well to oral iron supplementation with resolution of anemia. She does not need parenteral iron therapy. Her vitamin B12 is in the low range of normal. She will be started on oral B12 supplementation. She does not have any kidney or liver dysfunction. No evidence of hemolysis or infectious causes of anemia. She can continue with once a day iron supplementation, ferrous sulfate 325 mg daily for now. Follow-up in 3 months.
--- NOTE | 2020-08-23 12:02 | MHC.HEMONC ---
Pt called to ask about bloodwork yesterday drawn at Consult. She was told b12 ordered at pharmacy and to continue to take iron per Dr Meade. She verbalized understanding.
--- NOTE | 2020-09-28 09:01 | HO.HEMONCTE1 ---
Hem/Onc Clinic Telehealth - Telehealth Location of Provider rendering services: Office Location of Patient: Home Patient Identification confirmed using: Name, : Yes Telehealth Method: Telephone Patient verbally consented to treatment: Yes Patient verbally consented to billing insurance company: Yes Patient informed of any privacy concerns related to visit: Yes Medical Summary - Medical Summary Date of Service: 09/28/20 Chief complaint: Scheduled follow-up Medical Summary: Diagnosis: Iron deficiency anemia Normal CBC in August 2020. Normal iron studies. Vitamin B12 level low range of normal. Started oral supplementation. Interval History Interval history: Scheduled tele visit for patient to discuss labs. She had no complaints today. She took vitamin B12 for a few days and stopped taking it. Home Medications and Allergies Home Medications Medication Instructions Recorded Confirmed Type escitalopram oxalate 20 mg tablet 20 mg PO DAILY 07/04/20 09/08/20 History hydroxyzine HCl 50 mg tablet 50 mg PO TID 07/04/20 09/08/20 History quetiapine 25 mg tablet 25 mg PO BEDTIME 07/04/20 09/08/20 History trazodone 50 mg tablet 50 mg PO BEDTIME 07/04/20 09/08/20 History Allergies Allergy/AdvReac Type Severity Reaction Status Date / Time oxycodone [OXYCODONE] Allergy Mild VOMITING Verified 09/08/20 08:48 hydrocodone [From Vicodin] Allergy Unknown upset Verified 09/08/20 08:48 stomach amoxicillin Allergy Rash Verified 09/08/20 08:48 Exam Vital signs: Vital Signs Temp 97.4 F 08/22/20 09:42 Pulse 82 08/22/20 09:42 Resp 12 08/22/20 09:42 BP 162/111 H 08/22/20 09:42 Pulse Ox 98 08/22/20 09:42 Weight 84.4 kg Body Mass Index 35.2 Narrative: Patient was not examined today. - Constitutional Present: no acute distress - Routine HEENT Exam Head: Present: normal inspection - Routine Respiratory Exam Absent: respiratory distress - Routine Cardiovascular Exam Cardiovascular: Present: S1, S2 Data - Labs CBC & Chem 7: 08/22/20 10:13 Labs: 08/22/20 10:13 Complete Blood Count Auto Diff Routine Ferritin Routine IRON PROFILE Routine Reticulocyte Count Routine Vitamin B12 and Folate Routine Laboratory Last Values WBC 10.7 X10*3/uL (4.8-10.8) 08/22/20 10:13 RBC 4.42 X10*6/uL (4.20-5.50) 08/22/20 10:13 Hgb 12.7 g/dl (12.0-16.0) 08/22/20 10:13 Hct 39.9 % (37-47) 08/22/20 10:13 MCV 90.3 fL (80-98) 08/22/20 10:13 MCH 28.7 pg (27.0-33.0) 08/22/20 10:13 MCHC 31.8 g/dl (31.0-35.0) 08/22/20 10:13 RDW 15.9 % (11.0-16.0) 08/22/20 10:13 Plt Count 353 X10*3/uL (160-400) 08/22/20 10:13 MPV 9.3 fL (9.4-12.3) L 08/22/20 10:13 Immature Gran % (Auto) 0.6 % (0.0-0.4) H 08/22/20 10:13 Neut % (Auto) 54.2 % (45-73) 08/22/20 10:13 Lymph % (Auto) 37.0 % (20-40) 08/22/20 10:13 [place] % (Auto) 6.6 % (2-11) 08/22/20 10:13 Eos % (Auto) 1.3 % (0-4) 08/22/20 10:13 Baso % (Auto) 0.3 % (0-2) 08/22/20 10:13 Lymph # (Auto) 3.9 X10*3/uL (1.2-4.9) 08/22/20 10:13 [place] # (Auto) 0.7 X10*3/uL (0.1-1.2) 08/22/20 10:13 Eos # (Auto) 0.1 X10*3/uL (0.0-0.4) 08/22/20 10:13 Baso # (Auto) 0.0 X10*3/uL (0.0-0.2) 08/22/20 10:13 Abs Immat Gran (auto) 0.06 X10*3/uL (0.00-0.03) H 08/22/20 10:13 Absolute Neuts (auto) 5.8 X10*3/uL (2.0-8.3) 08/22/20 10:13 Absolute Nucleated RBC 0.000 X10*3/uL (0.0-0.012) 08/22/20 10:13 Nucleated RBC % (auto) 0.0 /100WBC (0.0-0.2) 08/22/20 10:13 Absolute Retic 0.082 X10*6/uL (0.026-0.095) 08/22/20 10:13 Percent Retic 1.9 % (0.5-1.8) H 08/22/20 10:13 Immature Retic Fraction 13.6 % (3.0-15.9) 08/22/20 10:13 Retic Hgb Equivalent 32.8 pg (30.0-35.0) 08/22/20 10:13 Iron 175 mcg/dL (30-160) H 08/22/20 10:13 TIBC 415 mcg/dL (228-428) 08/22/20 10:13 % Saturation 42 % (15-50) 08/22/20 10:13 Unsat Iron Binding 240 ug/dL 08/22/20 10:13 Ferritin 12 ng/mL (10-122) 08/22/20 10:13 Vitamin B12 283 pg/mL (200-900) 08/22/20 10:13 Folate 13.5 ng/mL (> or = 4.0) 08/22/20 10:13 Progress Note: A/P (1) Anemia Status: Chronic Assessment and plan: 1. This is a 35-year-old woman with probable iron deficiency anemia related to blood losses from recent miscarriage and other losses. She has responded well to oral iron supplementation with resolution of anemia. She does not need parenteral iron therapy. Her vitamin B12 is in the low range of normal. We discussed oral B12 supplementation, she is willing to take it. She can stop it after 2 months. Recheck labs in 6 months. I spent 10 minutes discussing her lab results and above plan. - Time Spent With Patient Total time spent is greater than 50% in coordination of care (as documented) at patient's floor/unit and/or counseling patient: less than 15 minutes
--- NOTE | 2020-09-28 09:25 | MHC.HEMONCMA ---
Patient had telehealth appt with the doctor today, states she is doing well. Clinical summary was reviewed and updated. Patient did not have labs since it was a phone call appt, she will return in 6 months for an in person appt. I scheduled the patient and will mail the appt to her.
== END | disposition home or self-care (01) ==
LOC: HO.ONC 08-22 09:25
PROVIDERS: PCP Internal Medicine; Referring Provider Internal Medicine; Visit Provider Internal Medicine
DX: E53.8 Deficiency of other specified B group vitamins (principal); Z86.2 Personal history of diseases of the blood and blood-forming organs and certain disorders involving the immune mechanism; Z79.899 Other long term (current) drug therapy
CPT/HCPCS: 36415; 82607; 82728; 82746; 83540; 85025; 85045; 99202

== ENCOUNTER 2024-03-06 13:52 | Outpatient (AMB) | payer OTHER, SELFPAY ==
--- NOTE | 2024-03-06 14:06 | MHC.OFFVIS ---
Vital Signs 03/06/24 14:08 Height 5 ft 1 in Weight 208 lb BMI 39.3 BP 118/74 Blood Pressure Location Lt brachial Position Sitting Pulse 73 Pulse Source Pulse Oximeter Pulse Oximetry (%) 97 Oxygen Delivery Method Room Air Intake Visit Reasons: dyspnea Allergies oxycodone [OXYCODONE] Allergy (Mild, Verified 03/06/24 14:12) VOMITING hydrocodone [From Vicodin] Allergy (Unknown, Verified 03/06/24 14:12) upset stomach amoxicillin Allergy (Verified 03/06/24 14:12) Rash HPI HPI dyspnea: Details: Andrey is a pleasant 38 year old female, current minimal smoker with less than 10 pack year history with underlying asthma, anemia, depression with anxiety, GERD, subclinical hyperthyroidism. She reports suboptimal control on Symbicort 80mcg and could not tolerate singulair as she developed mood swings. Today she presents to review RAST. Since the last visit, she reports worsening respiratory symptoms which she attributes to allergies. [facility] Medical History (Updated 11/22/23 @ 20:22 by Romelia Williamson NP) Hypovitaminosis D Mild recurrent major depression B12 deficiency Thyroid nodule Morbid obesity with BMI of 40.0-44.9, adult Encounter for physical examination Cannabis abuse PTSD (post-traumatic stress disorder) Panic attack Polysubstance abuse Hepatitis C Subclinical hyperthyroidism GERD (gastroesophageal reflux disease) Syncope and collapse Normocytic anemia Abnormal TSH Depression with anxiety Miscarriage Anemia Surgical History H/O LEEP History of delivery Family History Father No problems noted. Mother No problems noted. Maternal Aunt Breast cancer Diabetes Heart attack Maternal Grandmother Hypertension Diabetes Social History (Updated 03/06/24 @ 14:14 by Monik Donaldson CMA) Household Members: Children Housing: Apartment Do you presently have visiting nurse or other home services: No Alcohol intake: never Patient Tobacco Use Status: Current someday Tobacco user Tobacco use type: Cigarette Cigarettes Per Day: 1 e-Cigarette/Vaping Use: Never Used Second Hand Smoke Exposure: No Substance Use Type: Amphetamines and Marijuana service: No Current occupational status: employed Current occupational exposures/hazards: No Sexual orientation: Did not discuss Cognitive needs: No Hearing needs: No Vision needs: No Review of Systems Const Denies chills, Denies excessive sweating, Denies fever(s), Denies headache(s) and Denies night sweats Eyes Denies dry eyes, Denies irritation and Denies itchy eyes ENT Reports Normal hearing present and Denies headache(s) Card Denies chest pain, Denies chest pain at rest, Denies chest pain with activity, Denies claudication, Denies leg edema and Denies paroxysmal nocturnal dyspnea Resp Denies chest congestion, Denies excessive phlegm production, Denies pain on inspiration, Denies pain with cough and Denies stridor Musc Denies myalgias Neuro Reports Normal hearing present and Denies headache(s) Endo Denies excessive sweating Dio/Lymph Denies lymphadenopathy Aller/Immun Denies itchy eyes and Denies seasonal rhinorrhea Physical Exam Vital Signs: Last Vital Signs Pulse 73 03/06/24 14:08 BP 118/74 03/06/24 14:08 Pulse Ox 97 03/06/24 14:08 Oxygen Delivery Method Room Air 03/06/24 14:08 BMI result Body Mass Index 39.3 Const General: cooperative, healthy appearing, comfortable, no acute distress, well developed and alert Nutritional Appearance: obese Orientation/consciousness: patient oriented x3 Limitations: no limitations HEENT Head: Yes normal to inspection, Yes normocephalic and Yes atraumatic Ears: hearing grossly normal bilaterally and external ears normal Eyes General: appearance normal, both eyes and all related structures Eyelids: Yes eyelids normal Sclerae: sclerae normal EOM: EOMs intact bilaterally Neck Neck: Yes normal visual inspection and Yes no lymphadenopathy Lymphatic: no lymphadenopathy noted Chest Chest palpation & inspection: normal inspection of the chest Resp Effort & Inspection: normal respiratory effort, able to speak in complete sentences, no audible wheezes, no cough, no stridor, not tachypneic, no tripod positioning and no use of accessory muscles Auscultation: clear to auscultation bilaterally Cardio Jugular venous distension: no JVD Rate: regular rate Rhythm: regular rhythm Skin Other: warm, dry General skin exam: no rashes or lesions noted Neuro General: patient oriented x3 Cranial nerves: Yes Normal hearing present Cognition (Neuro): normal cognition Gait exam (Neuro): Normal gait present Extrem General: Yes normal to inspection, Yes capillary refill normal, Yes no clubbing, cyanosis or edema and Yes no pedal edema Psych Appearance: grossly normal and well kempt Speech and movement: Normal speech and movement present and Clear speech present Affect: normal affect Attitude: cooperative Thought process: Normal thought process present Thought content: Normal thought content present Insight: Good insight present (Psych) Judgement: Good judgement present (Psych) Assessment & Plan Assessment & Plan (1) Asthma: Code(s): J45.909 - Unspecified asthma, uncomplicated Category: Medical (2) Environmental allergies: Code(s): Z91.09 - Other allergy status, other than to drugs and biological substances Category: Medical Plan Reviewed RAST which revealed multiple environmental allergies. Unable to tolerate singulair. Encouraged daily use of zyrtec and will trial ipratropium nasal spray. Will also increase symbicort. If no improvements will consider biologic. Awaiting PFT to be scheduled. She is aware if symptoms do not improve to call. All questions were answered and patient is in agreement of plan. Will follow up to review response to inhaler or sooner if needed. Medications: New budesonide-formoterol 160-4.5 mcg/actuation (Symbicort) 2 puffs inhalation Q12H 10.2 grams 3RF ipratropium bromide administer into each nostril 2 sprays intranasal BID 30 mL 3RF Refilled albuterol sulfate 90 mcg/actuation 2 puffs inhalation Q4-6H PRN 1 ea 3RF shortness of breath or wheezing Discontinued budesonide-formoterol 80-4.5 mcg/actuation Discontinued Reason: Patient Completed Course 2 inhalations inhalation BID 30 days 10.2 grams 3RF Coding Level of Care Code Est Pt Level 4 (23780) Diagnoses Asthma J45.909 Environmental allergies Z91.09
[2024-03-06 14:08] VITALS: BP 118/74; PULSE 73; O2SAT 97; BMI 39.3
== END 2024-03-06 14:41 | disposition home or self-care (01) ==
PROVIDERS: PCP Internal Medicine; Visit Provider Nurse Practitioner Family
DX: J45.909 Unspecified asthma, uncomplicated (principal); Z91.09 Other allergy status, other than to drugs and biological substances
CPT/HCPCS: 99214

== ENCOUNTER → 2024-03-06 13:52 | Outpatient (BNVA) | payer OTHER, SELFPAY | PROVIDERS: PCP Internal Medicine; Visit Provider Nurse Practitioner Family | DX: J45.909 Unspecified asthma, uncomplicated (principal); Z91.09 Other allergy status, other than to drugs and biological substances | CPT/HCPCS: 99212 ==

== ENCOUNTER 2024-04-06 14:57 | Outpatient (AMB) | payer OTHER, SELFPAY ==
[2024-04-06 14:58] VITALS: BP 122/76; BMI 39.5
--- NOTE | 2024-04-06 14:58 | A.OFFPC_ITS ---
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: No Accompanied by: Daughter Allergies oxycodone [OXYCODONE] Allergy (Mild, Verified 04/06/24 15:06) VOMITING hydrocodone [From Vicodin] Allergy (Unknown, Verified 04/06/24 15:06) upset stomach amoxicillin Allergy (Verified 04/06/24 15:06) Rash Medication List - Last Reconciled 04/06/24 by Mague Salas MD albuterol sulfate 90 mcg/actuation 2 puffs inhalation Q4-6H PRN albuterol sulfate 90 mcg/actuation 2 puffs inhalation Q4-6H PRN budesonide-formoterol 80-4.5 mcg/actuation (Symbicort) 2 puffs PO BID cetirizine (All Day Allergy (cetirizine)) 10 mg PO DAILY PRN 90 days cholecalciferol (vitamin D3) 25 mcg PO DAILY 90 days clonidine HCl 0.1 mg PO TID PRN 90 days hydroxyzine HCl 50 mg PO TID PRN ipratropium bromide 2 sprays intranasal BID methimazole 5 mg PO DAILY 90 days Tobacco use date assessed: 10/03/23 Dental Screening Dental Screen Date: 10/03/23 HPI HPI Comments History of Present Illness Details This is a 38-year-old female that comes for her physical exam. Mammogram will be ordered. Pap smear was done this year and was normal as per patient. 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 No other acute complaint. [facility] Medical History (Updated 04/06/24 @ 15:56 by Mague Salas MD) Hypovitaminosis D Mild recurrent major depression B12 deficiency Thyroid nodule Morbid obesity with BMI of 40.0-44.9, adult Encounter for physical examination Cannabis abuse PTSD (post-traumatic stress disorder) Panic attack Polysubstance abuse Hepatitis C Subclinical hyperthyroidism GERD (gastroesophageal reflux disease) Syncope and collapse Normocytic anemia Abnormal TSH Depression with anxiety Miscarriage Anemia Surgical History H/O LEEP History of delivery Family History Father No problems noted. Mother No problems noted. Maternal Aunt Breast cancer Diabetes Heart attack Maternal Grandmother Hypertension Diabetes Social History Household Members: Children Housing: Apartment Do you presently have visiting nurse or other home services: No Alcohol intake: never Patient Tobacco Use Status: Current someday Tobacco user Tobacco use type: Cigarette Cigarettes Per Day: 1 e-Cigarette/Vaping Use: Never Used Second Hand Smoke Exposure: No Substance Use Type: Amphetamines and Marijuana service: No Current occupational status: employed Current occupational exposures/hazards: No Sexual orientation: Did not discuss Cognitive needs: No Hearing needs: No Vision needs: No Questionnaire Thrive Questionnaire Date Thrive assessed: 10/03/23 JAVON-7 AMB Questionnaire JAVON-7 Date JAVON - 7 assessed: 10/03/23 Source: Developed by Drs. Skyler Hickey, Allison Mirza, Marcus Blake and colleagues, with an educational carlos from [employer]. Review of Systems Const All systems reviewed & are unremarkable except as noted in HPI and below Card Denies chest pain at rest, Denies chest pain with activity, Denies edema, Denies irregular heart rhythm, Denies claudication, Denies dyspnea, Denies dyspnea on exertion, Denies orthopnea, Denies paroxysmal nocturnal dyspnea and Denies slow heart rate Resp Denies cough, Denies dyspnea and Denies dyspnea on exertion GI Denies abdominal pain, Denies change in bowel habits, Denies excessive flatus, Denies nausea and Denies vomiting Neuro Denies lack of coordination Physical exam (Primary Care) Vital Signs: Last Vital Signs BP 122/76 04/06/24 14:58 BMI result Body Mass Index 39.5 BMI Assessment/Plan discussion: High BMI High, discussed plan: lifestyle, weight reduction, dietary and physical activity Tobacco/Smoking Status: Tobacco use Status Tobacco use date assessed 10/03/23 04/06/24 15:03 Patient Tobacco Use Status Current someday Tobacco 04/06/24 15:03 Tobacco use type Cigarette 04/06/24 15:03 e-Cigarette/Vaping Use Never Used 04/06/24 15:03 Are you ready to quit: Yes Tobacco cessation counseling provided: Yes Items discussed: Nicotine replacement and QuitWorks Relapse Prevention: discussed the importance of a supportive environment, discussed negative mood or depression after quitting, weight gain after smoking is common and discussed dietary, exercise and/or lifestyle changes Number of minutes spent counselin CPT code: 94458 - 4-10 Minutes Thrive Assessment: Date of Thrive Assessment Date Thrive assessed 10/03/23 04/06/24 15:03 HENMT Head: Yes normal to inspection, Yes normocephalic and Yes atraumatic Ears: external ears normal Eyes General: appearance normal, both eyes and all related structures Eyelids: Yes eyelids normal Conjunctivae: conjunctivae normal Neck Neck: Yes normal visual inspection and Yes supple Resp Effort & Inspection: normal respiratory effort Auscultation: clear to auscultation bilaterally Cardio Jugular venous distension: no JVD Rate: regular rate Rhythm: regular rhythm Heart sounds: S1 normal heart sound present and S2 normal heart sound present GI Inspection: Yes normal to inspection Palpation (GI): Soft to palpation and nontender Auscultation: normal bowel sounds Skin General skin exam: no rashes or lesions noted Neuro General: no focal motor deficits Extrem General: Yes full ROM Psych Appearance: grossly normal Office Procedures Flu Questionnaire Does the patient have a severe egg allergy?: No Does the patient have severe life threatening allergies?: No Does the patient have a fever or illness today?: No Has the patient ever had Guillain-Bethesda Syndrome?: No Has the patient ever had any past reaction to a flu shot?: No Immunizations Fluarix Triv [id number] (PF) 45 mcg (15 mcg x 3)/0.5 mL IM syringe Performing Provider: Mague Salas MD [facility] Administered by: SHANA Stout on 04/06/24 15:20 Dose Route Admin Location Dispensed Lot Number Expiration Date [facility] Horse [employer] Manager 0.5 mL IM Left Deltoid 0.5 mL [id number] 12/07/24 39033-223-23 [employer] VIS Given Date VIS Provided VIS Publication Date 04/06/24 Single Vaccine 21 Eligibility Eligibility Date Funding Source Not [facility] Eligible 04/06/24 Private Coding Level of Care Code Est Pt Level 3 (76384) Est Pt Prev Care 40-64y(76202) Diagnoses Physical exam Z00.00 Environmental allergies Z91.09 Additional Codes Vital Signs *Quality* - CPT code: 90643 - 4-10 Minutes ([id number]) Time Spent (min) 34 Assessment & Plan Assessment & Plan (1) Physical exam: Code(s): Z00.00 - Encounter for general adult medical examination without abnormal findings Category: Medical Plan: Repeat in a year. 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 Orders: Orders Influenza [id number] Immunization Today Z23 - Encounter for immunization MM tomosynthesis screening BI Today Z12.31 - Encounter for screening mammogram for malignant neoplasm of breast Lipid Panel Today E78.5 - Hyperlipidemia, unspecified Comprehensive [place]. Panel Fast Today J45.909 - Unspecified asthma, uncomplicated Thyroid Stimulating Hormone Today E05.90 - Thyrotoxicosis, unspecified without thyrotoxic crisis or storm Free T4 (Free Thyroxine) Today E05.90 - Thyrotoxicosis, unspecified without thyrotoxic crisis or storm Referrals Allergy & Immunology Referral Z91.09 - Other allergy status, other than to drugs and biological substances
== END 2024-04-06 15:27 | disposition home or self-care (01) ==
LOC: HO.HMCH 14:57
PROVIDERS: PCP Internal Medicine; Visit Provider Internal Medicine
DX: Z00.00 Encounter for general adult medical examination without abnormal findings (principal); Z91.09 Other allergy status, other than to drugs and biological substances; F17.210 Nicotine dependence, cigarettes, uncomplicated

== ENCOUNTER → 2024-04-06 14:57 | Outpatient (BNVA) | payer OTHER, SELFPAY | PROVIDERS: PCP Internal Medicine; Visit Provider Internal Medicine | DX: Z00.00 Encounter for general adult medical examination without abnormal findings (principal); Z23 Encounter for immunization; E78.5 Hyperlipidemia, unspecified; J45.909 Unspecified asthma, uncomplicated; E05.90 Thyrotoxicosis, unspecified without thyrotoxic crisis or storm; Z91.09 Other allergy status, other than to drugs and biological substances | CPT/HCPCS: 90471; 90656; 99396 ==

== ENCOUNTER 2024-06-19 08:32 | Outpatient (REF) | payer OTHER, SELFPAY ==
[2024-06-19 11:34] LABS: MANUAL DIFF FLAG NO
[2024-06-19 11:47] LABS: Basophils Percent Auto 0.3 % (0-2); Hematocrit 39.5 % (37.0-47.0); Hemoglobin 13.2 g/dl (12.0-16.0); Imm Gran Abs Auto 0.06 X10*3/uL (0.00-0.03); Imm Gran Pct Auto 0.6 % (0.0-0.4); Lymphocytes Percent Auto 38.7 % (20-40); Mean Corpuscular HGB Conc 33.4 g/dl (31.0-35.0); Mean Corpuscular Hemoglobin 29.6 pg (27.0-33.0); Mean Corpuscular Volume 88.6 fL (80.0-98.0); Mean Platelet Volume 9.5 fL (9.4-12.3); Monocytes Absolute Auto 0.6 X10*3/uL (0.1-1.2); Monocytes Percent Auto 5.7 % (2-11); Neutrophils Absolute Auto 5.7 x10*3/uL (2.0-8.3); Neutrophils Percent Auto 54.7 % (45-73); Platelet Count 357 X10*3/uL (160-400); Red Blood Count 4.46 X10*6/uL (4.20-5.50); Red Cell Distribution Width 12.7 % (11.0-16.0); White Blood Count 10.4 X10*3/uL (4.8-10.8)
[2024-06-19 12:29] LABS: Alanine Aminotransferase 23 U/L (0-31); Albumin Level 4.5 g/dL (3.5-5.0); Alkaline Phosphatase 75 U/L (39-117); Anion Gap 10 (12-20); Aspartate Amino Transferase 23 U/L (5-31); Bilirubin Total 0.2 mg/dL (0.0-1.0); Blood Urea Nitrogen 8 mg/dL (9-16); Carbon Dioxide 26 mmol/L (22-29); Chloride 109 mmol/L (96-108); Cholesterol 188 mg/dL (<200); Estimated Glomerular Filt Rate > 60; Free T4 (Free Thyroxine) 0.78 ng/dL (0.71-1.85); Glucose Fasting 112 mg/dL (60-99); HDL Cholesterol 41 mg/dL (>40); LDL Cholesterol Calculated 125 mg/dL (<100); Potassium 4.1 mmol/L (3.3-5.1); Sodium 141 mmol/L (135-145); Thyroid Stimulating Hormone 1.93 uIU/mL (0.32-4.0); Total Protein 7.5 g/dL (6.5-8.0); Triglycerides 111 mg/dL (<150)
[2024-06-23 23:09] LABS: Immunoglobulin E 738 kU/L (<OR=114)
== END 2024-06-19 08:33 | disposition home or self-care (01) ==
LOC: HO.WFDLDS 08:32
PROVIDERS: Referring Provider Nurse Practitioner Family; Visit Provider Internal Medicine
DX: J45.909 Unspecified asthma, uncomplicated (principal); Z91.09 Other allergy status, other than to drugs and biological substances; E05.90 Thyrotoxicosis, unspecified without thyrotoxic crisis or storm; E78.5 Hyperlipidemia, unspecified
CPT/HCPCS: 36415; 80053; 80061; 82785; 84439; 84443; 85025

== ENCOUNTER 2024-06-22 14:47 | Outpatient (REF) | payer OTHER, SELFPAY | END 2024-06-22 14:48 | disposition home or self-care (01) | LOC: HO.MAMMO 14:47 | PROVIDERS: PCP Internal Medicine; Visit Provider Internal Medicine | DX: Z12.31 Encounter for screening mammogram for malignant neoplasm of breast (principal) | CPT/HCPCS: 77063; 77067 ==

== ENCOUNTER → 2024-06-22 15:15 | Outpatient (BNV) | payer OTHER, SELFPAY | PROVIDERS: PCP Internal Medicine; Visit Provider Internal Medicine | DX: Z12.31 Encounter for screening mammogram for malignant neoplasm of breast (principal) | CPT/HCPCS: 77063; 77067 ==

== ENCOUNTER 2024-06-24 11:00 | Outpatient (AMB) | payer OTHER, SELFPAY ==
--- NOTE | 2024-06-24 11:02 | AM.OFFWIN_ITS ---
Intake Vital Signs 06/24/24 11:06 06/24/24 11:19 Height 5 ft 1 in Weight 204 lb 6 oz BMI 38.6 BP 148/78 H 132/80 Blood Pressure Location Rt brachial Rt brachial Position Sitting Sitting Respiration 14 Pulse 76 Pulse Source Pulse Oximeter Temp 97.6 F Temp Source Oral Pulse Oximetry (%) 96 Oxygen Delivery Method Room Air Intake Visit Reasons: Ear ache, swollen glands and sinus problem Intake Note: Patient complaining of earache on both ears, night sweats, nose bleeding, and bump on throat since yesterday. Patient also had covid two weeks ago. Patient Tobacco Use Status: Current someday Tobacco user Allergies oxycodone [OXYCODONE] Allergy (Mild, Verified 06/24/24 11:15) VOMITING hydrocodone [From Vicodin] Allergy (Unknown, Verified 06/24/24 11:15) upset stomach amoxicillin Allergy (Verified 06/24/24 11:15) Rash Medication List - Last Reconciled 06/24/24 by Ailyn Eng, [facility] albuterol sulfate 90 mcg/actuation 2 puffs inhalation Q4-6H PRN budesonide-formoterol 80-4.5 mcg/actuation (Symbicort) 2 puffs PO BID cetirizine (All Day Allergy (cetirizine)) 10 mg PO DAILY PRN 90 days cholecalciferol (vitamin D3) 25 mcg PO DAILY 90 days clonidine HCl 0.1 mg PO TID PRN 90 days hydroxyzine HCl 50 mg PO TID PRN ipratropium bromide 2 sprays intranasal BID methimazole 5 mg PO DAILY 90 days Do you need a note to return to daycare/school/sports/work: Yes HPI HPI Comments History of Present Illness Details The patient is a 39-year-old female presenting with bilateral earaches, night sweats, nose bleeding, and bumps in her throat. These symptoms commenced yesterday. The patient was COVID-19 positive two weeks prior and reports feeling generally unwell throughout that period. There was an initial improvement, but the recent onset of symptoms suggests a potential new or lingering issue. Her symptoms include dizziness, throat sores, and bad sinuses. She administered thvt-shm-npvbsil medications, including NyQuil and DayQuil. Her asthma is presently under better control and she has not modified her asthma treatment regimen. Current smoker BP noted to be elevated during intake. Denies hx of HTN. Exam Awake alert NAD., mildly ill appearing Sclera and conjunctiva clear bilat Nares mod amt of clear drainage, turbinates pale and edematous, mild maxillary sinus tenderness with palpation bilat TM intact and dull bilat MMM, pharynx + erythema, some mucous noted, no ulcerations in the throat, uvula midline RRR BP recheck WNL LS CTAB Results - Labs/Tests: Throat swab negative for s trep - Throat and nasal swab: Sent for COVID- 19, Influenza, and RSV testing Plan - Monitor and await pending swab results to rule out influenza, RSV, or a new COVID-19 infection. - Provide appropriate pharmacologic kevin tment based on swab results: antiviral medication if influenza is confirmed, or Paxlovid consideration if COVID-19 reoccurrence. - Recommend jdqb-ako-mrnvefq cold medica tions for symptom management. - Evaluate blood pressure over time; pat ient does not currently require antihypertensive medication. - Cont asthma tx - RTO edu provided. Discussion Notes I explained to the patient that her current symptoms could be due to a concurrent infection with flu, RSV, or another strain of COVID-19, given her recent history of COVID-19. I discussed the reasoning behind performing the nasal swab to obtain further diagnostic clarity. If this test is negative, we would consider bacterial sinusitis and initiate appropriate antibiotic therapy. Paxlovid could be an option if COVID-19 is reconfirmed, though COVID usually resolves on its own. I stressed the importance of monitoring her symptoms and the necessity of follow-up should symptoms persist. Given her initial elevation of blood pressure, we will watch for consistent readings that may necessitate intervention. Patient was informed and verbally consented to the use of an ambient scribe for clinic note documentation during this visit. Patient Instructions - Await results of nasal swab and follow guidance on treatment based on results. - Continue using rlwy-bay-gkgbjqb medica tions like NyQuil as needed for symptom relief. - Monitor for any worsening symptoms and contact the clinic if conditions deteriorate. - Rest and avoid stressful activities to aid recovery. - Keep follow-up for upcoming breathing test for asthma assessment. - Cont asthma tx - RTO edu provided. - Follow issued note for work absence un til Saturday completion date. This note is constructed using voice recognition software. While every effort has been made to ensure accuracy in sock examiner, still errors may have been included Sometimes, these errors may affect the content or meaning of the given sentence . Total time spent caring for the patient today was 30 minutes. This includes time spent before the visit reviewing the chart, time spent during the visit, and time spent after the visit on documentation [facility] Medical History Hypovitaminosis D Mild recurrent major depression B12 deficiency Thyroid nodule Morbid obesity with BMI of 40.0-44.9, adult Encounter for physical examination Cannabis abuse PTSD (post-traumatic stress disorder) Panic attack Polysubstance abuse Hepatitis C Subclinical hyperthyroidism GERD (gastroesophageal reflux disease) Syncope and collapse Normocytic anemia Abnormal TSH Depression with anxiety Miscarriage Anemia Surgical History H/O LEEP History of delivery Family History Father No problems noted. Mother No problems noted. Maternal Aunt Breast cancer Diabetes Heart attack Maternal Grandmother Hypertension Diabetes Social History Household Members: Children Housing: Apartment Do you presently have visiting nurse or other home services: No Alcohol intake: never Patient Tobacco Use Status: Current someday Tobacco user Tobacco use type: Cigarette Cigarettes Per Day: 1 e-Cigarette/Vaping Use: Never Used Second Hand Smoke Exposure: No Substance Use Type: Amphetamines and Marijuana service: No Current occupational status: employed Current occupational exposures/hazards: No Sexual orientation: Did not discuss Cognitive needs: No Hearing needs: No Vision needs: No Physical Exam Vital Signs: Last Vital Signs Temp 97.6 F 06/24/24 11:06 Pulse 76 06/24/24 11:06 Resp 14 06/24/24 11:06 BP 132/80 06/24/24 11:19 Pulse Ox 96 06/24/24 11:06 Oxygen Delivery Method Room Air 06/24/24 11:06 BMI result Body Mass Index 38.6 Results AMB Rapid Strep AMB Rapid Strep Negative Last Edit by Jed Christie MA on 06/24/24 11:26 Results Reviewed Results Reviewed: Laboratory Last Values Strep Scn Rapid Clinic Negative 06/24/24 11:11 Assessment & Plan Assessment & Plan (1) Flu-like symptoms: Code(s): R68.89 - Other general symptoms and signs (2) History of COVID-19: Code(s): Z86.16 - Personal history of COVID-19 (3) Moderate asthma: Code(s): J45.909 - Unspecified asthma, uncomplicated Qualifiers: Asthma complication type: uncomplicated Asthma persistence: persistent Qualified Code(s): J45.40 - Moderate persistent asthma, uncomplicated (4) Elevated BP without diagnosis of hypertension: Code(s): R03.0 - Elevated blood-pressure reading, without diagnosis of hypertension Plan . Orders: Orders AMB Rapid Strep Screen Today Z13.9 - Encounter for screening, unspecified SARS-CoV2/FLU/RSV Today R09.89 - Other specified symptoms and signs involving the circulatory and respiratory systems, R68.89 - Other general symptoms and signs Coding Level of Care Code Est Pt Level 4 (92162) Diagnoses Flu-like symptoms R68.89 History of COVID-19 Z86.16 Moderate persistent asthma without complication J45.40 Asthma complication type: uncomplicated Asthma persistence: persistent Elevated BP without diagnosis of hypertension R03.0
[2024-06-24 11:06] VITALS: BP 148/78; PULSE 76; RESP 14; TEMP 36.4; O2SAT 96; BMI 38.6
[2024-06-24 11:19] VITALS: BP 132/80
== END 2024-06-24 11:24 | disposition home or self-care (01) ==
PROVIDERS: PCP Internal Medicine; Visit Provider Nurse Practitioner Family
DX: R68.89 Other general symptoms and signs (principal); Z86.16 Personal history of COVID-19; J45.40 Moderate persistent asthma, uncomplicated; R03.0 Elevated blood-pressure reading, without diagnosis of hypertension; Z13.9 Encounter for screening, unspecified

== ENCOUNTER → 2024-06-24 11:00 | Outpatient (BNVA) | payer OTHER, SELFPAY | PROVIDERS: PCP Internal Medicine | DX: R68.89 Other general symptoms and signs (principal); J45.40 Moderate persistent asthma, uncomplicated; R03.0 Elevated blood-pressure reading, without diagnosis of hypertension; Z86.16 Personal history of COVID-19 | CPT/HCPCS: 87880; 99212 ==

== ENCOUNTER 2024-06-24 14:34 | Outpatient (REF) | payer OTHER, SELFPAY ==
[2024-06-24 16:09] LABS: Influenza A PCR NEGATIVE (Negative); Influenza B PCR NEGATIVE (Negative); Resp Syncy Virus RNA Qual PCR NEGATIVE (Negative); SARS COV2 PCR INHOUSE NEGATIVE (Negative)
== END 2024-06-24 14:35 | disposition home or self-care (01) ==
LOC: HO.LNP 14:34
PROVIDERS: Visit Provider Nurse Practitioner Family
DX: R09.89 Other specified symptoms and signs involving the circulatory and respiratory systems (principal); R68.89 Other general symptoms and signs
CPT/HCPCS: 0241U

== ENCOUNTER 2024-09-09 11:28 | Outpatient (REF) | payer OTHER, SELFPAY ==
[2024-09-09 14:12] LABS: MANUAL DIFF FLAG NO
[2024-09-09 14:24] LABS: Basophils Percent Auto 0.1 % (0-2); Hematocrit 39.9 % (37.0-47.0); Hemoglobin 13.6 g/dl (12.0-16.0); Imm Gran Abs Auto 0.06 X10*3/uL (0.00-0.03); Imm Gran Pct Auto 0.6 % (0.0-0.4); Lymphocytes Absolute Auto 3.3 X10*3/uL (1.2-4.9); Lymphocytes Percent Auto 34.9 % (20-40); Mean Corpuscular HGB Conc 34.1 g/dl (31.0-35.0); Mean Corpuscular Hemoglobin 30.5 pg (27.0-33.0); Mean Corpuscular Volume 89.5 fL (80.0-98.0); Mean Platelet Volume 9.5 fL (9.4-12.3); Monocytes Absolute Auto 0.4 X10*3/uL (0.1-1.2); Monocytes Percent Auto 4.5 % (2-11); Neutrophils Absolute Auto 5.7 x10*3/uL (2.0-8.3); Neutrophils Percent Auto 59.9 % (45-73); Platelet Count 337 X10*3/uL (160-400); Red Blood Count 4.46 X10*6/uL (4.20-5.50); White Blood Count 9.4 X10*3/uL (4.8-10.8)
[2024-09-09 14:51] LABS: Alanine Aminotransferase 24 U/L (0-31); Albumin Level 4.5 g/dL (3.5-5.0); Alkaline Phosphatase 77 U/L (39-117); Anion Gap 10 (12-20); Aspartate Amino Transferase 20 U/L (5-31); Bilirubin Total 0.3 mg/dL (0.0-1.0); Blood Urea Nitrogen 10 mg/dL (9-16); Calcium 9.4 mg/dL (8.4-10.2); Carbon Dioxide 26 mmol/L (22-29); Chloride 107 mmol/L (96-108); Cholesterol 194 mg/dL (<200); Estimated Glomerular Filt Rate > 60; Glucose Fasting 90 mg/dL (60-99); HDL Cholesterol 40 mg/dL (>40); LDL Cholesterol Calculated 119 mg/dL (<100); Potassium 4.2 mmol/L (3.3-5.1); Sodium 139 mmol/L (135-145); Total Protein 7.5 g/dL (6.5-8.0); Triglycerides 175 mg/dL (<150)
[2024-09-09 14:56] LABS: Free T4 (Free Thyroxine) 0.85 ng/dL (0.71-1.85); Thyroid Stimulating Hormone 0.79 uIU/mL (0.32-4.0); Vitamin D 25-OH Total 32.9 ng/mL (>30)
[2024-09-09 14:57] LABS: Free T4 (Free Thyroxine) 0.95 ng/dL (0.71-1.85); Thyroid Stimulating Hormone 0.87 uIU/mL (0.32-4.0)
[2024-09-09 15:06] LABS: Folate 12.9 ng/mL (> or = 4.0); Vitamin B12 428 pg/mL (200-900)
[2024-09-10 06:04] LABS: Triiodothyronine T3 Free 3.4 pg/mL (2.3-4.2)
[2024-09-10 18:38] LABS: Thyroglobulin Antibodies <1 IU/mL (< or = 1); Thyroid Peroxidase Antibodies 1 IU/mL (<9)
[2024-09-14 14:28] LABS: Thyroxine Binding Globulin 18.3 mcg/mL (13.5-30.9)
== END 2024-09-09 11:29 | disposition home or self-care (01) ==
LOC: HO.WFDLDS 11:28
PROVIDERS: Internal Medicine Endocrinology, Diabetes & Metabolism; Visit Provider Internal Medicine
DX: E05.90 Thyrotoxicosis, unspecified without thyrotoxic crisis or storm (principal); E55.9 Vitamin D deficiency, unspecified; E78.5 Hyperlipidemia, unspecified; R03.0 Elevated blood-pressure reading, without diagnosis of hypertension; E53.8 Deficiency of other specified B group vitamins; D64.9 Anemia, unspecified
CPT/HCPCS: 36415; 80053; 80061; 82306; 82607; 82746; 84439; 84442; 84443; 84481; 85025; 86376; 86800

== ENCOUNTER 2024-11-17 13:00 | Outpatient (REF) | payer OTHER, SELFPAY ==
--- NOTE | 2024-11-17 13:08 | PFT_ITS ---
Flows: FEV1: 93 % of predicted at 2.51 L FVC: 93 % of predicted at 3.06 L FEV1/FVC: 82 % Bronchodilator response: Present in small to medium airways only. Volumes: Total lung capacity: 95 % of predicted at 4.48 L Residual volume: 119 % of predicted at 1.42 L Slow vital capacity: 87 % of predicted at 3.06 L Expiratory reserve volume: 35 % of predicted at 0.36 L Diffusion capacity: Normal Impression: No obstructive or restrictive ventilatory defect. Bronchodilator response is present in small to medium airways only. Decreased expiratory reserve volume suggests extrathoracic restriction likely secondary to abdominal obesity. MTDD
[2024-11-17 13:53] VITALS: PULSE 72; O2SAT 98
== END 2024-11-17 13:01 | disposition home or self-care (01) ==
LOC: HO.RESP 13:00
PROVIDERS: PCP Internal Medicine; Visit Provider Nurse Practitioner Family
DX: J45.909 Unspecified asthma, uncomplicated (principal)
CPT/HCPCS: 94010; 94640; 94727; 94729

== ENCOUNTER → 2024-11-17 13:08 | Outpatient (BNV) | payer OTHER, SELFPAY | PROVIDERS: PCP Internal Medicine; Visit Provider Internal Medicine Pulmonary Disease | DX: J45.40 Moderate persistent asthma, uncomplicated (principal) | CPT/HCPCS: 94060; 94727; 94729 ==

== ENCOUNTER 2024-11-25 10:05 | Outpatient (REF) | payer OTHER, SELFPAY ==
[2024-11-25 11:41] LABS: MANUAL DIFF FLAG NO
[2024-11-25 11:53] LABS: Basophils Percent Auto 0.1 % (0-2); Hematocrit 39.2 % (37.0-47.0); Hemoglobin 12.8 g/dl (12.0-16.0); Imm Gran Abs Auto 0.04 X10*3/uL (0.00-0.03); Imm Gran Pct Auto 0.5 % (0.0-0.4); Lymphocytes Absolute Auto 3.3 X10*3/uL (1.2-4.9); Lymphocytes Percent Auto 41.2 % (20-40); Mean Corpuscular HGB Conc 32.7 g/dl (31.0-35.0); Mean Corpuscular Volume 88.7 fL (80.0-98.0); Mean Platelet Volume 9.3 fL (9.4-12.3); Monocytes Absolute Auto 0.4 X10*3/uL (0.1-1.2); Monocytes Percent Auto 4.7 % (2-11); Neutrophils Absolute Auto 4.2 x10*3/uL (2.0-8.3); Neutrophils Percent Auto 53.5 % (45-73); Platelet Count 328 X10*3/uL (160-400); Red Blood Count 4.42 X10*6/uL (4.20-5.50); Red Cell Distribution Width 12.5 % (11.0-16.0); White Blood Count 7.9 X10*3/uL (4.8-10.8)
[2024-11-25 12:29] LABS: Erythrocyte Sedimentation Rate 11 MM/HR (0-20)
[2024-11-25 12:42] LABS: Rheumatoid Factor < 13.0 IU/mL (<15.0)
[2024-11-25 12:43] LABS: Alanine Aminotransferase 20 U/L (0-31); Albumin Level 4.6 g/dL (3.5-5.0); Alkaline Phosphatase 83 U/L (39-117); Anion Gap 11 (12-20); Aspartate Amino Transferase 20 U/L (5-31); Bilirubin Total 0.4 mg/dL (0.0-1.0); Blood Urea Nitrogen 9 mg/dL (9-16); C Reactive Protein 0.87 mg/dL (< or = 0.50); Calcium 9.2 mg/dL (8.4-10.2); Carbon Dioxide 25 mmol/L (22-29); Chloride 108 mmol/L (96-108); Estimated Glomerular Filt Rate > 60; Glucose Fasting 94 mg/dL (60-99); Iron 90 mcg/dL (30-160); Percent Iron Saturation 29 % (15-50); Potassium 4.3 mmol/L (3.3-5.1); Sodium 140 mmol/L (135-145); Total Iron Binding Capacity 312 mcg/dL (228-428); Total Protein 7.3 g/dL (6.5-8.0); Unsaturated Iron Binding 222 ug/dL
[2024-11-25 12:58] LABS: Thyroid Stimulating Hormone 0.41 uIU/mL (0.32-4.0)
[2024-11-25 13:11] LABS: Folate 10.9 ng/mL (> or = 4.0); Vitamin B12 428 pg/mL (200-900)
[2024-11-26 09:23] LABS: Lyme Abs Screen <0.90 index
[2024-11-26 16:33] LABS: Anti DNA DS Antibody 12 IU/mL
[2024-11-27 09:53] LABS: Anti Nuclear Antibody Screen NEGATIVE (NEGATIVE)
[2024-11-30 15:43] LABS: Cyclic Citrullinated Peptide <16 UNITS
== END 2024-11-25 10:06 | disposition home or self-care (01) ==
LOC: HO.WFDLDS 10:05
PROVIDERS: Visit Provider Internal Medicine
DX: K21.9 Gastro-esophageal reflux disease without esophagitis (principal); D64.9 Anemia, unspecified; E05.90 Thyrotoxicosis, unspecified without thyrotoxic crisis or storm; E53.8 Deficiency of other specified B group vitamins; M25.50 Pain in unspecified joint; E55.9 Vitamin D deficiency, unspecified
CPT/HCPCS: 36415; 80053; 82306; 82607; 82746; 83540; 84439; 84443; 85025; 85652; 86038; 86140; 86200; 86225; 86431; 86617; 86618

== ENCOUNTER 2024-12-28 16:51 | Outpatient (AMB) | payer OTHER, SELFPAY ==
--- NOTE | 2024-12-28 16:57 | A.OFFPC_ITS ---
Vital Signs 12/28/24 16:58 Height 5 ft 1 in Weight 200 lb BMI 37.8 BP 136/82 Blood Pressure Location Lt brachial Position Sitting Intake Visit Reasons: lipids Intake Note: Patient here for a follow up lipids Face Burler Required: No Accompanied by: Self / Same As Patient Allergies oxycodone (OXYCODONE) Allergy (Mild, Verified 12/28/24 17:08) VOMITING hydrocodone (From Vicodin) Allergy (Unknown, Verified 12/28/24 17:08) upset stomach amoxicillin Allergy (Verified 12/28/24 17:08) Rash Medication List - Last Reconciled 12/28/24 by Mague Salas MD albuterol sulfate 90 mcg/actuation 2 puffs inhalation Q4-6H PRN azelastine intranasal budesonide-formoterol 80-4.5 mcg/actuation (Symbicort) 2 puffs PO BID cholecalciferol (vitamin D3) 25 mcg PO DAILY 90 days clonidine HCl 0.1 mg PO TID PRN 90 days hydroxyzine HCl 50 mg PO TID PRN ipratropium bromide 2 sprays intranasal BID levocetirizine 5 mg PO DAILY methimazole 5 mg PO DAILY 90 days Tobacco use date assessed: 12/28/24 Dental Screening Dental Screen Date: 12/28/24 Did you have a dental visit in the last 12 months?: Yes Did you have a dental problem in the last 6 months where you did not have access to dental care?: No Was dental information given to patient?: Patient has dentist HPI HPI Comments History of Present Illness Details The patient is a 39-year-old female presenting for a physical exam and preventative care. She has a history of allergic reactions to medications, specifically oxycodone, which causes vomiting, and amoxicillin, which results in a rash. The patient reports mild depression, describing it as a slight feeling of sadness that occurs occasionally without a clear trigger. She is currently managing a thyroid disorder and has been following up with endocrinology for this condition. In terms of preventative care, she received her last Tdap vaccination in 2016, with the next one due in 2026. She has completed a mammogram and has a Pap smear scheduled for February. [facility] Medical History Hypovitaminosis D Mild recurrent major depression B12 deficiency Thyroid nodule Morbid obesity with BMI of 40.0-44.9, adult Encounter for physical examination Cannabis abuse PTSD (post-traumatic stress disorder) Panic attack Polysubstance abuse Hepatitis C Subclinical hyperthyroidism GERD (gastroesophageal reflux disease) Syncope and collapse Normocytic anemia Abnormal TSH Depression with anxiety Miscarriage Anemia Surgical History H/O LEEP History of delivery Family History Father No problems noted. Mother No problems noted. Maternal Aunt Breast cancer Diabetes Heart attack Maternal Grandmother Hypertension Diabetes Social History Household Members: Children Housing: Apartment Do you presently have visiting nurse or other home services: No Alcohol intake: never Patient Tobacco Use Status: Current someday Tobacco user Tobacco use type: Cigarette Cigarettes Per Day: 1 e-Cigarette/Vaping Use: Never Used Second Hand Smoke Exposure: No Substance Use Type: Amphetamines and Marijuana service: No Current occupational status: employed Current occupational exposures/hazards: No Sexual orientation: Did not discuss Cognitive needs: No Hearing needs: No Vision needs: No Questionnaire PHQ-9 Over the last 2 weeks, how often have you been bothered by any of the following problems? 1. Little interest or pleasure in doing things: not at all 2. Feeling down, depressed, or hopeless: not at all 3. Trouble falling or staying asleep, or sleeping too much: not at all 4. Feeling tired or having little energy: more than half the days 5. Poor appetite or overeating: not at all 6. Feeling bad about yourself - or that you are a failure or have let yourself or your family down: not at all 7. Trouble concentrating on things, such as reading the newspaper or watching television: not at all 8. Moving or speaking so slowly that other people could have noticed. Or the opposite - being so fidgety or restless that you have been moving around a lot more than usual: more than half the days 9. Thoughts that you would be better off or of hurting yourself in some way: not at all Total score: 4 Depression Screening Interpretation: Positive Depression Screening Follow-up: Existing condition and Follow-up Visit Requested Depression Screening Done: Yes 27384 - PHQ-9 Billing: Yes Source: Developed by Drs. Skyler Hickey, Allison Mirza, Marcus Blake and colleagues, with an educational carlos from [employer]. Thrive Questionnaire Date Thrive assessed: 12/28/24 I am a: Patient What is your living situation today?: I have a steady place to live Within the past 12 months, did the food you bought not last and you didn't have the money to get more?: Never true Within the past 12 months, did you worry whether your food would run out before you got money to buy more?: Never true Do you have trouble paying for medicines?: No Do you have trouble getting transportation to medical appointments?: Yes Do you have trouble paying your heating and electricity bill?: Yes Do you have trouble taking care of your child, family member or friend?: No Do you have trouble with day-to-day activities such as bathing, preparing meals, shopping, managing finances, etc.?: No Are you currently unemployed and looking for a job?: No Are you interested in more education?: No Please select the resources that you would like help with: None Currently or been in a relationship where the following occur: No concerns reported THRIVE Score: 2 AUDIT C Alcohol Use Questionnaire (AUDIT-C) 1. How often do you have a drink containing alcohol?: Monthly or less 2. How many drinks containing alcohol do you have on a typical day when you are drinking?: 1 or 2 3. How often do you have six or more drinks on one occasion?: Less than monthly Total Score: 2 Score Reviewed/Action Taken: No JAVON-7 AMB Questionnaire JAVON-7 Date JAVON - 7 assessed: 12/28/24 Feeling nervous, anxious, or on edge: 2 = More than half the days Not being able to stop or control worryin = More than half the days Worrying too much about different things: 2 = More than half the days Trouble relaxin = Not at all Being so restless that it is hard to sit still: 2 = More than half the days Becoming easily annoyed or irritable: 2 = More than half the days Feeling afraid as if something awful might happen: 2 = More than half the days Total JAVON-7 score (0-4 normal; 5-9 mild; 10-14 moderate; 15-21 severe): 12 Source: Developed by Drs. Skyler Hickey, Allison Mirza, Marcus Blake and colleagues, with an educational carlos from [employer]. JAVON-7 Assessment Billing JAVON-7 Assessment Tool: JAVON-7 Assessment 47469 Review of Systems Const All systems reviewed & are unremarkable except as noted in HPI and below Card Denies chest pain at rest, Denies chest pain with activity, Denies edema, Denies irregular heart rhythm, Denies claudication, Denies dyspnea, Denies dyspnea on exertion, Denies orthopnea, Denies paroxysmal nocturnal dyspnea and Denies slow heart rate Resp Denies cough, Denies dyspnea and Denies dyspnea on exertion GI Denies abdominal pain, Denies change in bowel habits, Denies excessive flatus, Denies nausea and Denies vomiting Denies urinary incontinence, Denies urinary hesitancy and Denies urinary urgency Musc Denies abnormal gait, Denies atrophy, Denies deformity and Denies limited range of motion Skin/Breast Denies bleeding lesions, Denies changing lesions and Denies rash Neuro Denies abnormal gait and Denies lack of coordination Physical exam (Primary Care) Vital Signs: Last Vital Signs BP 136/82 12/28/24 16:58 BMI result Body Mass Index 37.8 Tobacco/Smoking Status: Tobacco use Status Tobacco use date assessed 12/28/24 12/28/24 17:02 Patient Tobacco Use Status Current someday Tobacco 12/28/24 17:02 Tobacco use type Cigarette 12/28/24 17:02 e-Cigarette/Vaping Use Never Used 12/28/24 17:02 PHQ-9: PHQ-9 Score PHQ-9: Total score 4 12/28/24 17:25 Depression Screening Interpretation: Positive Depression Screening Follow-up: Existing condition and Follow-up Visit Requested Thrive Assessment: Date of Thrive Assessment Date Thrive assessed 12/28/24 12/28/24 17:02 Currently or been in a relationship where the following occur: No concerns reported HENMT Head: Yes normal to inspection, Yes normocephalic and Yes atraumatic Ears: external ears normal Eyes General: appearance normal, both eyes and all related structures Eyelids: Yes eyelids normal Conjunctivae: conjunctivae normal Neck Neck: Yes normal visual inspection and Yes supple Resp Effort & Inspection: normal respiratory effort Auscultation: clear to auscultation bilaterally Cardio Jugular venous distension: no JVD Rate: regular rate Rhythm: regular rhythm Heart sounds: S1 normal heart sound present and S2 normal heart sound present GI Inspection: Yes normal to inspection Palpation (GI): Soft to palpation and nontender Auscultation: normal bowel sounds Skin General skin exam: no rashes or lesions noted Neuro General: no focal motor deficits Extrem General: Yes full ROM Psych Appearance: grossly normal Coding Level of Care Code Est Pt Level 3 (37855) Est Pt Prev Care 40-64y(78336) Diagnoses Physical exam Z00.00 Hyperthyroidism E05.90 Mild recurrent major depression F33.0 Additional Codes JAVON-7 Assessment Billing - JAVON-7 Assessment Tool: AJVON-7 Assessment 58597 ([id number]) PHQ-9 - 53522 - PHQ-9 Billing: Yes ([id number]) Time Spent (min) 31 Assessment & Plan Assessment & Plan (1) Physical exam: Code(s): Z00.00 - Encounter for general adult medical examination without abnormal findings Category: Medical (2) Hyperthyroidism: Code(s): E05.90 - Thyrotoxicosis, unspecified without thyrotoxic crisis or storm Category: Medical (3) Mild recurrent major depression: Code(s): F33.0 - Major depressive disorder, recurrent, mild Category: Medical Plan The patient will continue to manage her thyroid disorder with follow-up appointments in endocrinology. For her mild depression, monitoring of symptoms is advised, and further evaluation may be considered if symptoms persist or worsen. Preventative care measures include ensuring the patient receives her next Tdap vaccination in 2026 and follows through with her scheduled Pap smear in February. Patient was informed and verbally consented to the use of an ambient scribe for clinic note documentation during this visit. Orders: Referrals Endocrinology Referral E05.90 - Thyrotoxicosis, unspecified without thyrotoxic crisis or storm Medications: Refilled cholecalciferol (vitamin D3) 25 mcg PO DAILY 90 caps 1RF 90 days E55.9 - Vitamin D deficiency, unspecified
[2024-12-28 16:58] VITALS: BP 136/82; BMI 37.8
== END 2024-12-28 17:20 | disposition home or self-care (01) ==
PROVIDERS: PCP Internal Medicine; Visit Provider Internal Medicine
DX: Z00.00 Encounter for general adult medical examination without abnormal findings (principal); E05.90 Thyrotoxicosis, unspecified without thyrotoxic crisis or storm; F33.0 Major depressive disorder, recurrent, mild

== ENCOUNTER → 2024-12-28 16:51 | Outpatient (BNVA) | payer OTHER, SELFPAY | PROVIDERS: PCP Internal Medicine; Visit Provider Internal Medicine | DX: Z00.00 Encounter for general adult medical examination without abnormal findings (principal); E05.90 Thyrotoxicosis, unspecified without thyrotoxic crisis or storm; F33.0 Major depressive disorder, recurrent, mild; Z13.31 Encounter for screening for depression; Z13.39 Encounter for screening examination for other mental health and behavioral disorders | CPT/HCPCS: 96127; 99396 ==